=== PATIENT | female | born 1975 ===

== ENCOUNTER → 2016-10-13 | Outpatient (CLI) | payer BC ==
[2016-10-13 13:20] VITALS: BMI 40.1
== END | disposition home or self-care (01) ==
LOC: BARWHC3 08:46
PROVIDERS: ATTEND Surgery
DX: Z71.3 Dietary counseling and surveillance (principal); E66.01 Morbid (severe) obesity due to excess calories; Z68.41 Body mass index [BMI] 40.0-44.9, adult
CPT/HCPCS: 97804

== ENCOUNTER → 2016-11-18 | Outpatient (CLI) | payer BC ==
[2016-11-18 12:48] LABS: Basophils % (A) 0 %; CH 29.8; CHCM 32.7; Eosinophils # (A) 0.3 k/uL (0-0.7); Eosinophils % (A) 3 %; HCT 37.9 % (34.0-46.0); HGB 12.5 gm/dL (11.4-16.0); Luc # (Auto) 0.24; Luc % (Auto) 3; Lymphocytes # (A) 3.1 k/uL (1.0-4.8); Lymphocytes % (A) 38 %; MCH 30.1 pg (25.0-35.0); MCV 91.3 fL (80.0-100.0); Mean Platelet Volume 10.1; Monocytes # (A) 0.4 k/uL (0-1.0); Monocytes % (A) 5 %; Neutrophils # (A) 4.1 k/uL (1.3-7.7); Neutrophils % (A) 51 %; RBC 4.15 m/uL (3.80-5.40); RDW 13.2 % (11.5-15.5); WBC 8.2 k/uL (3.8-10.6); WBC (Perox) 8.13
[2016-11-18 13:03] LABS: Anion Gap 9 mmol/L; Blood Urea Nitrogen 13 mg/dL (7-17); Carbon Dioxide 27 mmol/L (22-30); Chloride 104 mmol/L (98-107); Glucose 83 mg/dL (74-99); Non-African American GFR(MDRD) >60 (>60 ml/min/1.73 sqM); Potassium 4.2 mmol/L (3.5-5.1); Sodium 140 mmol/L (137-145)
== END | disposition home or self-care (01) ==
LOC: LABPAT 12:20
PROVIDERS: ATTEND Obstetrics & Gynecology
DX: Z01.812 Encounter for preprocedural laboratory examination (principal)
CPT/HCPCS: 36415; 80051; 82565; 82947; 84520; 85025; 87086

== ENCOUNTER 2016-11-25 08:37 | Inpatient (IN) | payer BC ==
[2016-11-17 11:09] VITALS: BMI 39.9
--- NOTE | 2016-11-20 13:06 | HP ---
DATE OF ADMISSION: 11/25/2016 This is a 40-year-old black female [address] Guido's care with a history of prolonged 10-day menses and golf ball size clots. Evaluation was performed and this was consistent with an enlarged fibroid uterus. In fact, sonogram 10/21/2016 reveals at least 7 fibroids, largest measuring 14.9 cm. All options have been reviewed in detail. Patient strongly prefers total abdominal hysterectomy, her has had vasectomy, and she desires no childbearing. In addition, she does not want to proceed with Depo-Lupron injections, or anything that may result in the fibroids growing back. She understands the risks of surgery, especially with the uterus of this size, to include, but not be exclusive of perforation or damage to the bowel or bladder to blood vessels, hemorrhage, possible need for blood transfusion, and issues with anesthesia to include aspiration, nerve damage or even . She understands the potential of damage to the ureters as well. The ACOG pamphlet on hysterectomy has been given to the patient, and she has reviewed this. Endometrial biopsy has been performed in the office and this is consistent with benign secretory endometrium. Review of systems is otherwise negative. PAST SURGICAL HISTORY: Knee surgery of the left knee 2010, right shoulder and left shoulder reconstruction in the . CURRENT MEDICATIONS: Citalopram 20 mg orally once daily. ALLERGIES: None known. Past medical history is significant for anemia, cardiomyopathy, heart murmur, as well as benign pituitary tumor. Dr. Guido is her primary care physician following. Family history is significant for breast cancer, hypertension, lung cancer and obesity. REPRODUCTIVE HISTORY: Menarche began at the age of 11, interval with monthly but duration is a full 10 days of very heavy flow. Recent FSH level is 2.2, thyroid function studies within normal limits. 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 She denies alcohol or drug use. She does drink caffeine daily. On examination, this is a pleasant black female, she is 242 pounds, 5 feet 5.25 inches, BMI 39. The general physical exam reveals no skin lesions or rashes, no thyromegaly, good dentition, no cervical lymphadenopathy. The chest is clear to auscultation in all sanchez anteriorly and posteriorly. The breast exam reveals symmetric breasts, no skin dimpling, nipple discharge, axillary adenopathy or discernible lesions or masses. Gastrointestinal exam reveals no CVA tenderness, the uterus is palpated through the abdominal wall almost to the umbilicus. The extremities reveal good range of motion, good peripheral pulses, no peripheral edema. The chest is clear to auscultation in all sanchez. The cardiac exam reveals regular rate and rhythm with no murmur, click or rub. On pelvic exam, the uterus is enlarged, approximately 16 to 18 weeks' size, irregular and mobile. Adnexa are difficult to palpate; however, sonographic evaluation suggests that they are within normal limits. Rectal exam reveals good sphincter tone, FIT negative stool, no lesions or masses. No inguinal lymphadenopathy is noted. Neurologic exam is completely intact. Patient is alert and oriented x3 with intact insight and judgment, normal mood and appropriate affect. IMPRESSION: Enlarged fibroid uterus, with a history of menometrorrhagia. Patient choosing abdominal hysterectomy at this time. PLAN: We will proceed with total abdominal hysterectomy. Ovaries will be inspected and left in situ if they are within normal limits to inspection. patient does consent to having the ovaries removed if they are not normal to inspection. She understands the risks and benefits of surgery as we have discussed in detail, please see above. All questions answered. Will proceed with total abdominal hysterectomy at [facility] on 11/25/2016.
[~2016-11-25 08:37] MED LIST: DEXAMETHASONE SOD PHOSPHATE 10 MG/ML 1 ML VIAL IV ONE; HYDROmorphone 1 MG/ML 1 ML SYRINGE IVP PRN; MIDAZOLAM 2 MG/2 ML VIAL IV PRN; ONDANSETRON 4 MG/2 ML VIAL IVP ONE; SCOPOLAMINE 1.5MG/72HR PATCH TRANSDERM ONE; ceFAZolin 2 GM in SODIUM CHLORIDE 0.9% 100 ML IVPB ONE
[2016-11-25] MEDS ORDERED: LIDOCAINE 1% 20 ML VIAL (10MG/ML) FOR IV START INTRADERMA ONE (09:40)
[2016-11-25 09:41] LABS: Glucose,Whole Blood 81 mg/dL (75-99)
[2016-11-25] MEDS: LACTATED RINGERS 1,000 ML IV SCH ×2 (09:42→22:46)
[2016-11-25] MEDS ORDERED: MIDAZOLAM 2 MG/2 ML VIAL IV ONE (10:00)
[2016-11-25] MEDS ORDERED: fentaNYL (PF) 50 MCG/ML 2 ML AMP IV ONE (10:00)
[2016-11-25] MEDS ORDERED: ePHEDrine 50 MG/ML 1 ML AMP ONE (10:34)
[2016-11-25] MEDS ORDERED: ROCURONIUM BROMIDE 10 MG/ML 10 ML VIAL IV ONE (10:34)
[2016-11-25] MEDS ORDERED: GLYCOPYRROLATE 0.2 MG/ML 2 ML VIAL ONE (10:34)
[2016-11-25] MEDS ORDERED: MORPHINE SULFATE (PF) 0.3 MG/0.3 ML SYR ONE (10:34)
[2016-11-25] MEDS ORDERED: fentaNYL (PF) 50 MCG/ML 2 ML AMP ONE (10:34)
[2016-11-25] MEDS ORDERED: NEOSTIGMINE 1 MG/ML 10 ML VIAL ONE (10:34)
[2016-11-25] MEDS ORDERED: SUCCINYLCHOLINE CHLORIDE 100 MG/5 ML SYR IV ONE (10:34)
[2016-11-25] MEDS ORDERED: PROPOFOL 10 MG/ML 20 ML VIAL IV ONE (10:34)
[2016-11-25] MEDS ORDERED: LIDOCAINE 1% INJ 10MG/ML (20 ML MDV) ONE (10:34)
[2016-11-25] MEDS ORDERED: LACTATED RINGERS 1,000 ML IV ONE ×2 (11:36)
[2016-11-25] MEDS ORDERED: SIMETHICONE 80 MG CHEWABLE PO PRN (12:05)
[2016-11-25] MEDS ORDERED: ZOLPIDEM 5 MG TAB PO PRN (12:05)
[2016-11-25] MEDS ORDERED: METOCLOPRAMIDE 5 MG/ML 2 ML VIAL IVP PRN (12:05)
[2016-11-25] MEDS ORDERED: IBUPROFEN 600 MG TAB PO PRN (12:05)
[2016-11-25] MEDS ORDERED: ONDANSETRON 4 MG/2 ML VIAL IVP PRN ×2 (12:05→13:52)
[2016-11-25] MEDS ORDERED: Acetaminophen-Codeine 300-30mg TAB PO PRN (12:05)
--- NOTE | 2016-11-25 12:05 | P.OP ---
Date of Procedure: 11/25/16 Preoperative Diagnosis: Symptomatic 16-18 week size fibroid uterus Postoperative Diagnosis: Same, normal-appearing ovaries bilaterally Procedure(s) Performed: Total abdominal hysterectomy Anesthesia: GUANACO Surgeon: Lisa Tomlinson Cattle Rancher #1: Cipriano Pan Estimated Blood Loss (ml): 200 IV fluids (ml): 1,200 Urine output (ml): 55 Pathology: other (Cervix and uterus) Condition: stable Disposition: PACU Description of Procedure: Patient is brought to Bring suite where a general anesthetic is administered after the placement of a Duramorph with spinal. The cervix vagina perineum and abdomen are all prepped and draped in usual sterile fashion. Antibiotics are given. The appropriate timeout is performed to assure proper patient and procedural identification. Manuel catheter is placed. A low transverse skin incision is made in this is carried down to the subcutaneous tissue that is approximately 6-8 cm deep. Fascia is isolated, scored and extended bilaterally with curved Alejandre scissors. Peritoneum is next identified and incised, there is no bowel or bladder involvement. Gentle examination under anesthesia reveals a negative upper abdomen. The O'Dez-O' Conner retractors placed and the bowel was gently packed with sterile sponges and the bladder blade is placed as well. Mckenna clamps are placed across the pedicles. The uterus is elevated. Round ligaments are approached, clamped cut and suture ligated. Skeletonization is then performed to keep the bladder off the anterior uterine segment. Windows are created and the utero-ovarian ligaments are identified, clamped cut and suture ligated. Bilateral ovaries are within normal limits and therefore left in situ per the patient's wishes. Skeletonization is then performed with Metzenbaum scissors on the uterine vasculature. The vessels are clamped cut and suture ligated. 2 additional pedicles are taken through the uterosacral cardinal ligament complex cc, these are skeletonized, clamped cut and suture ligated. At all times the bladder swept well from the operative field to avoid bladder and/or ureteral injury. Curved Davion clamps are used across the vaginal cervical junction and the cervix and uterus are removed and sent to pathology for evaluation. 0 Vicryl sutures are used across the final pedicles. The abdomen is then irrigated, all pedicles are reinspected and noted to be clean and dry. Manuel catheter is noted to be draining clear urine. The peritoneum is allowed to close by secondary intention. The fascia is closed in a running stitch of 0 Vicryl suture with over ligation in the midline. Subcutaneous tissue is irrigated, clean and dry. It is reapproximated with 3-0 Vicryl in a running stitch. 4-0 undyed Vicryl issues for final skin closure. Steri-Strips and Mastisol are applied to the wound. Total estimated blood loss 200 mL, urine output 55 mL, fluid replacement 1200 mL 's. Patient is brought back to the recovery room in stable condition with a blood pressure of 107/58, pulse 62. All sponge needle and enhancement counts are correct.
[2016-11-25] MEDS ORDERED: MORPHINE SULFATE 4 MG/ML SYRINGE IVP PRN ×2 (13:52→14:42)
[2016-11-25] MEDS ORDERED: NALOXONE 0.4 MG/ML 1 ML VIAL IV PRN (13:52)
[2016-11-25] MEDS ORDERED: NALBUPHINE 10 MG/ML AMPUL IV PRN (13:52)
[2016-11-25] MEDS: diphenhydrAMINE 50 MG/ML 1 ML VIAL IVP PRN (22:37)
[2016-11-25] MEDS: KETOROLAC 30 MG/ML 1 ML VIAL IVP PRN (22:37)
[2016-11-25] MEDS: SENNOSIDES-DOCUSATE SODIUM 1 EACH TAB PO SCH (22:46)
[2016-11-26] MEDS: diphenhydrAMINE 50 MG/ML 1 ML VIAL IVP PRN (05:16)
[2016-11-26] MEDS: KETOROLAC 30 MG/ML 1 ML VIAL IVP PRN (05:17)
--- NOTE | 2016-11-26 07:11 | P.PN ---
Subjective Principal diagnosis: Postoperative day #1 Objective - Vital Signs Vital signs: Vital Signs Temp 98.9 F 11/26/16 04:00 Pulse 58 L 11/26/16 04:00 Resp 16 11/26/16 04:00 BP 113/59 11/26/16 04:00 Pulse Ox 99 11/26/16 04:00 Intake & Output 11/25/16 11/26/16 11/26/16 18:59 06:59 18:59 Intake Total 2100 Output Total 655 950 Balance 1445 -950 Intake: IV 2100 Output: Urine 455 950 Uretheral (Manuel) 200 Estimated Blood Loss 200 Other: Voiding Method Indwelling Catheter # Voids 1 - Constitutional General appearance: Present: average body habitus, cooperative - EENT Eyes: Present: PERRLA ENT: Present: hearing grossly normal - Neck Neck: Present: normal ROM Thyroid: bilateral: normal size - Respiratory Respiratory: bilateral: CTA - Cardiovascular Rhythm: regular Heart sounds: normal: S1, S2 - Gastrointestinal General gastrointestinal: Present: normal bowel sounds - Genitourinary Genitourinary Comment(s): Skin vaginal drainage. No CVA tenderness. - Integumentary Integumentary: Present: normal - Neurologic Neurologic: Present: CNII-XII intact, focal deficits - Musculoskeletal Musculoskeletal: Present: gait normal, strength equal bilaterally - Psychiatric Psychiatric: Present: A&O x's 3, appropriate affect, intact judgment & insight Assessment and Plan Plan: Continue postoperative care. Patient may shower. Discontinue IV. Advanced diet. Possible discharge home later today versus discharge home tomorrow morning pending patient's clinical progress. Time with Patient: Less than 30
[2016-11-26 10:25] LABS: Basophils # (A) 0.2 k/uL (0-0.2); Basophils % (A) 2 %; CH 30.1; CHCM 32.1; Eosinophils % (A) 0 %; HCT 31.1 % (34.0-46.0); HDW 2.46; Luc # (Auto) 0.26; Luc % (Auto) 2; Lymphocytes # (A) 1.6 k/uL (1.0-4.8); Lymphocytes % (A) 13 %; MCH 30.4 pg (25.0-35.0); MCHC 32.3 g/dL (31.0-37.0); MCV 94.3 fL (80.0-100.0); Monocytes # (A) 0.5 k/uL (0-1.0); Monocytes % (A) 4 %; Neutrophils # (A) 9.5 k/uL (1.3-7.7); Neutrophils % (A) 78 %; RDW 13.6 % (11.5-15.5); WBC 12.2 k/uL (3.8-10.6); WBC (Perox) 12.98
--- NOTE | 2016-11-26 10:41 | P.PN ---
Progress Note - Text Postoperative day 1 status post total abdominal hysterectomy under general endotracheal anesthesia, and intrathecal morphine given for postoperative analgesia, patient doing well, there is no anesthesia related complications, further management as per her primary team
[2016-11-26] MEDS: SENNOSIDES-DOCUSATE SODIUM 1 EACH TAB PO SCH (17:21)
[2016-11-26 17:25] VITALS: BP 103/68; PULSE 72; RESP 16; TEMP 97.8
[2016-11-26] MEDS ORDERED: ALBUTEROL NEBULIZED 2.5 MG/3 ML INHALATION PRN (17:29)
[2016-11-26] MEDS ORDERED: ALPRAZolam 0.25 MG TAB PO PRN (17:29)
[2016-11-26] MEDS ORDERED: ERGOCALCIFEROL 50,000 UNIT CAP PO SCH (17:30)
--- NOTE | 2016-11-26 19:38 | DS ---
DATE OF ADMISSION: 11/25/2016 DATE OF DISCHARGE: 11/26/2016 ADMITTING DIAGNOSIS: Increasingly symptomatic [id number] fibroid uterus. DISCHARGE DIAGNOSIS: Status post total abdominal hysterectomy. This is a 41-year-old black female who presented with a long-standing history of fibroid uterus. The patient over time was noted to have an increasingly symptomatic fibroid uterus, approximately 16- to 18-week size on clinical examination. Sonographic evaluation revealed multiple uterine fibroids, and after consultation patient elected to proceed with total abdominal hysterectomy. She declined the option of Lupron therapy. She declined the option of uterine artery embolization. Preoperative clearance was given per her primary care physician, Dr. Guido. Please see my dictated history and physical for details. Patient was admitted, and with a low transverse incision underwent a total abdominal hysterectomy. Ovaries appeared normal to inspection and were left in situ. Patient did well intraoperatively with an estimated blood loss of 200 mL. Please see my dictated operative note for details. Patient was given spinal with Duramorph to aid in postoperative analgesia. Today the patient is doing very well. Manuel catheter has been removed. She is voiding, ambulating, passing flatus, tolerating regular diet. She has showered. She denies lightheadedness or dizziness. Vital signs are stable and she has remained afebrile. Morning hemoglobin was 10.0. She has only scant vaginal drainage. The abdominal incision is clean and dry, well approximated, Steri-Strips applied. Chest is clear in all sanchez. Extremities are negative. She has active bowel sounds. No CVA tenderness. Patient is being discharged home per her request. She is in very good condition for discharge home. She is reminded to follow up with me in the office in 2 weeks, and to call for that appointment. She will use yicb-van-jjspoth Advil products, 2 pills every 8 hours, or Aleve, 2 pills every 12 hours, or ibuprofen products, 200 mg pills, 3 every 6 hours as needed for pain. I have asked her to call me with any fever, shakes or chills, foul-smelling or copious vaginal drainage, with any pain not alleviated by [id number]-nix-mnbyxde products, with any lightheadedness or dizziness or any other symptomatology. She will resume her preoperative medications as prescribed per Dr. Guido. No driving for 2 weeks. No heavy lifting greater than a gallon of milk. Limited stair climbing.
[2016-11-27] MEDS ORDERED: MULTIVITAMINS, THERA 1 EACH TAB PO SCH (12:00)
== END 2016-11-26 18:32 | disposition home or self-care (01) | DRG 743 ==
LOC: 2ORWHC 08:37 → 4FBP 12:40
PROVIDERS: ADMIT Obstetrics & Gynecology; ATTEND Obstetrics & Gynecology
PROC: 0UTC0ZZ Resection of Cervix, Open Approach (ICD-10-PCS; principal; 2016-11-25 10:25)
PROC: 0UT90ZZ Resection of Uterus, Open Approach (ICD-10-PCS; principal; 2016-11-25 10:25)
DX: D25.9 Leiomyoma of uterus, unspecified (principal); G47.33 Obstructive sleep apnea (adult) (pediatric); Z79.899 Other long term (current) drug therapy
CPT/HCPCS: 36415; 80051; 81025; 82565; 82947; 84520; 85025; 86850; 86900; 86901; 87086; 88307

== ENCOUNTER → 2017-11-13 | Outpatient (CLI) | payer BC ==
--- NOTE | 2017-11-13 17:57 | US ---
EXAMINATION TYPE: US transvaginal DATE OF EXAM: 11/13/2017 COMPARISON: NONE CLINICAL HISTORY: N94.10 dyspareunia. Partial hysterectomy 01/28. Dyspareunia TECHNIQUE: Transvaginal (TV). Date of LMP: unknown EXAM MEASUREMENTS: Uterus: Surgically absent Endometrial Stripe: Surgically absent Right Ovary: 3.5 x 1.8 x 1.9 cm Left Ovary: 2.8 x 2.1 x 2.3 cm 1. Uterus: Surgically absent 2. Endometrium: Surgically absent 3. Right Ovary: follicle noted 4. Left Ovary: cystic area = 1.5 x 1.7 x 1.8cm 5. Bilateral Adnexa: wnl IMPRESSION: Simple 1.7 cm left ovarian cyst. No solid pelvic mass. No free fluid.
== END | disposition home or self-care (01) ==
LOC: RADUSWWP 16:15
PROVIDERS: ATTEND Internal Medicine Geriatric Medicine
DX: N83.292 Other ovarian cyst, left side (principal)
CPT/HCPCS: 76830

== ENCOUNTER → 2017-12-28 | Outpatient (CLI) | payer BC ==
--- NOTE | 2017-12-28 11:21 | MM ---
Reason for exam: clinical finding. Last mammogram was performed 1 year and 5 months ago. History: Patient is nulliparous. Family history of breast cancer in sister at age 39. Benign excisional biopsy of the left breast, 2008. Took hormonal contraceptives for 7 years beginning at age 17. Physical Findings: Nurse Summary: 0.5cm nodule in the left breast at 10-11 o'clock (nurse kp). MG Diagnostic Mammo w CAD CAIO Bilateral CC and MLO view(s) were taken. Spot compression CC view(s) were taken of the left breast. Prior study comparison: July 18, 2016, bilateral MG diagnostic mammo w CAD CAIO. The breast tissue is heterogeneously dense. This may lower the sensitivity of mammography. Palpable marker left 11 o'clock. Small asymmetric density medial and posterior does not persist on spot view. Stable upper outer quadrant lymph node. These results were verbally communicated with the patient and result sheet given to the patient on 12/28/17. ASSESSMENT: Incomplete: need additional imaging evaluation, BI-RAD 0 RECOMMENDATION: Ultrasound of the left breast. [facility] will attempt to contact patient to return for ultrasound.
--- NOTE | 2017-12-28 11:24 | USB ---
Reason for exam: additional evaluation requested from abnormal screening. History: Patient is nulliparous. Family history of breast cancer in sister at age 39. Benign excisional biopsy of the left breast, 2008. Took hormonal contraceptives for 7 years beginning at age 17. US Breast LT Left breast ultrasound includes all four quadrants, the retroareolar region and axilla. Finding demonstrates a 10 x 7 x 9mm oval, probable lymph node at 1 o'clock seen on previous. Duct ectasia corresponding to the mammographic finding. Palpable marker at 11 o'clock. No sonographic abnormality in this area. These results were verbally communicated with the patient and result sheet given to the patient on 12/28/17. ASSESSMENT: Benign, BI-RAD 2 RECOMMENDATION: Routine screening mammogram of both breasts in 1 year. Manage on a clinical basis with regard to any suspicious palpable abnormality.
== END | disposition home or self-care (01) ==
LOC: RADMAMWWP 08:10
PROVIDERS: ATTEND Obstetrics & Gynecology
DX: R92.8 Other abnormal and inconclusive findings on diagnostic imaging of breast (principal); N63.20 Unspecified lump in the left breast, unspecified quadrant
CPT/HCPCS: 77066

== ENCOUNTER 2019-05-04 10:00 | Observation (INO) | payer BC ==
[2019-05-04] MEDS ORDERED: SODIUM CHLORIDE 0.9% 500 ML 500 ML IV STA (10:18)
--- NOTE | 2019-05-04 10:31 | ED ---
General Adult HPI - General Source: patient, RN notes reviewed, old records reviewed Mode of arrival: wheelchair Limitations: physical limitation <Arturo Rodriguez - Last Filed: 05/04/19 12:08> <Angus Fernando - Last Filed: 05/04/19 12:44> - General Chief complaint: Chest Pain Stated complaint: chest pain, has heart Hx Time Seen by Provider: 05/04/19 10:11 - History of Present Illness Initial comments: 43-year-old female patient with past history of hypertrophic effective cardiomyopathy presents to ED with acute 3 days of chest pain, pleuritic chest pain. Patient reports pain is located in her left breast, substernally. Patient reports pain comes and goes, describes as a dull, squeezing pain. Patient ports that she experiencing this pain at rest as well as with exertion. She recently had a echocardiogram, does not yet know the results. Patient had a cardiac catheterization in [address] Sanders. Patient states that she contacted [facility] today and they recommended present to ER. Systemic: Pt denies fatigue, fever/chills, rash. Pt denies weakness, night sweats, weight loss. Neuro: Pt denies headache, visual disturbances, syncope or pre-syncope. HEENT: Pt denies ocular discharge or irritation, otalgia, rhinorrhea, pharyngitis or notable lymphadenopathy. Cardiopulmonary: Pt denies SOB, heart palpitations, dyspnea on exertion. Abdominal/GI: Pt denies abdominal pain, n/v/d. : Pt denies dysuria, burning w/ urination, frequency/urgency. Denies new onset urinary or bowel incontinence. MSK: Pt denies myalgia, loss of strength or function in extremities. Neuro: Pt denies new onset weakness, paresthesias. (Arturo Rodriguez) - Related Data Home Medications Medication Instructions Recorded Confirmed ALPRAZolam [Xanax] 0.25 tab PO DAILY PRN 04/28/16 05/04/19 Citalopram Hydrobromide [CeleXA] 20 mg PO DAILY 04/28/16 05/04/19 Ergocalciferol [Vitamin D2 50,000 units PO Q14D 04/28/16 05/04/19 (DRISDOL)] Albuterol Inhaler [Ventolin Hfa 2 puff INHALATION RT-Q6H PRN 11/17/16 05/04/19 Inhaler] Metoprolol Succinate (ER) [Toprol 25 mg PO DAILY 05/04/19 05/04/19 Xl] Montelukast [Singulair] 10 mg PO DAILY PRN 05/04/19 05/04/19 Allergies Allergy/AdvReac Type Severity Reaction Status Date / Time No Known Allergies Allergy Verified 05/04/19 10:56 Review of Systems ROS Other: All systems not noted in ROS Statement are negative. <Arturo Rodriguez - Last Filed: 05/04/19 12:08> ROS Other: All systems not noted in ROS Statement are negative. <Angus Fernando - Last Filed: 05/04/19 12:44> ROS Statement: Those systems with pertinent positive or pertinent negative responses have been documented in the HPI. 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 "heat stroke few years ago", no cpap, hx anemia, current pneumonia- on rx, lazy left eye History of Any Multi-Drug Resistant Organisms: None Reported Past Surgical History: Adenoidectomy, Breast Surgery, Heart Catheterization, Orthopedic Surgery, Tonsillectomy Additional Past Surgical History / Comment(s): SANCHEZ, bl shoulder reconstructions, left knee arthroscopy, cyst removed from left breast, Past Anesthesia/Blood Transfusion Reactions: Postoperative Nausea & Vomiting (PONV) Past Psychological History: No Psychological Hx Reported Smoking Status: Never smoker Past Alcohol Use History: None Reported Past Drug Use History: None Reported - Past Family History Father Family Medical History: Cancer <Arturo Rodriguez - Last Filed: 05/04/19 12:08> General Exam Limitations: physical limitation <Arturo Rodriguez - Last Filed: 05/04/19 12:08> - General Exam Comments Initial Comments: Constitutional: NAD, AOX3, Pt has pleasant affect. HEENT: NC/AT, trachea midline, neck supple, no lymphadenopathy. Posterior pharynx non erythematous, without exudates. External ears appear normal, without discharge. Mucous membranes moist. Eyes PERRLA, EOM intact. There is no scleral icterus. No pallor noted. Cardiopulmonary: RRR, no murmurs, rubs or gallops, no JVD noted. Lungs CTAB in anterior and posterior sanchez. No peripheral edema. Abdominal exam: Abdomen soft and non-distended. Abdomen non-tender to palpation in all 4 quadrants. Bowel sounds active in LLQ. No hepatosplenomegaly. No ecchymosis Neuro: CN II-XII grossly intact. No nuchal rigidity. No raccon eyes, no paniagua sign, no hemotympanum. No cervical spinal tenderness. MSK: No posterior calf tenderness bilaterally, homans sign negative bilaterally. Posterior tibialis and radial pulse +2 bilaterally. Sensation intact in upper and lower extremities. Full active ROM in upper and lower extremities, 5/5 stregnth. (Arturo Rodriguez) Course <Angus Fernando - Last Filed: 05/04/19 12:44> Vital Signs 05/04/19 05/04/19 05/04/19 10:04 10:29 10:49 Temperature 99 F Pulse Rate 54 L 51 L 56 L Pulse Rate [ Contract Assistant ] Respiratory 18 15 16 Rate Blood Pressure 115/76 127/79 O2 Sat by Pulse 99 99 98 Oximetry 05/04/19 05/04/19 05/04/19 10:50 11:00 11:07 Temperature Pulse Rate 88 Pulse Rate [ 56 L Contract Assistant ] Respiratory 16 Rate Blood Pressure 134/81 131/84 O2 Sat by Pulse 98 Oximetry 05/04/19 12:00 Temperature Pulse Rate 55 L Pulse Rate [ Contract Assistant ] Respiratory 16 Rate Blood Pressure 110/57 O2 Sat by Pulse 99 Oximetry - Reevaluation(s) Reevaluation #1: 05/04/19 12:42 Patient reevaluated and reexamined by myself, Dr. Fernando. Patient resting comfortably in bed following nitroglycerin. Patient updated on results and plan. I do agree with the findings. This includes diagnostic interpretation and treatment plan. Case was also discussed with Dr. Luther, who will admit covered for Dr. Guido. (Angus Fernando) Medical Decision Making - Lab Data Result diagrams: 05/04/19 10:25 05/04/19 10:25 - EKG Data -: EKG Interpreted by Me (and Dr. Fernando ) <Arturo Rodriguez - Last Filed: 05/04/19 12:08> - Lab Data Result diagrams: 05/04/19 10:25 05/04/19 10:25 <Angus Fernando - Last Filed: 05/04/19 12:44> - Medical Decision Making 43-year-old female patient with past medical history of hypertrophic obstructive cardiomyopathy presents ED chief complaint of chest pain for last 3 days. Patient reports that is under her left breast, mildly pleuritic in nature. Patient has any shortness of breath. Patient reports that she expressed the pain with exertion as well as with rest. Patient vital signs stable, afebrile. Physical exam did not display acute pathology. Laboratory investigations noncompressive. CBC CMP were not impressive. D-dimer negative, coagulation studies within normal limits. Troponin negative. BNP 157. EKG nonischemic. Chest x-ray did not display acute process. One sublingual nitro reduced pain from a 7 to a 0. Patient will be initiated on low intensity heparin. He'll be admitted for cardiac evaluation, serial troponins. Case discussed with Dr. Fernando. (Arturo Rodriguez) - Lab Data Lab Results 05/04/19 05/04/19 05/04/19 Range/Units 10:25 10:25 10:25 WBC 7.1 (3.8-10.6) k/uL RBC 4.38 (3.80-5.40) m/uL Hgb 13.5 (11.4-16.0) gm/dL Hct 40.7 (34.0-46.0) % MCV 92.9 (80.0-100.0) fL MCH 30.8 (25.0-35.0) pg MCHC 33.2 (31.0-37.0) g/dL RDW 14.3 (11.5-15.5) % Plt Count 212 (150-450) k/uL Neutrophils % 59 % Lymphocytes % 30 % Monocytes % 6 % Eosinophils % 3 % Basophils % 1 % Neutrophils # 4.1 (1.3-7.7) k/uL Lymphocytes # 2.1 (1.0-4.8) k/uL Monocytes # 0.4 (0-1.0) k/uL Eosinophils # 0.2 (0-0.7) k/uL Basophils # 0.0 (0-0.2) k/uL Manual Slide Review Performed Large Platelets Present RBC Morphology Normal PT 10.5 (9.0-12.0) sec INR 1.0 (<1.2) APTT 24.9 (22.0-30.0) sec D-Dimer 0.33 (<0.60) mg/L FEU Sodium 139 (137-145) mmol/L Potassium 4.5 (3.5-5.1) mmol/L Chloride 105 (98-107) mmol/L Carbon Dioxide 23 (22-30) mmol/L Anion Gap 11 mmol/L BUN 12 (7-17) mg/dL Creatinine 0.84 (0.52-1.04) mg/dL Est GFR (CKD-EPI)AfAm >90 (>60 ml/min/1.73 sqM) Est GFR (CKD-EPI)NonAf 85 (>60 ml/min/1.73 sqM) Glucose 82 (74-99) mg/dL Calcium 9.6 (8.4-10.2) mg/dL Magnesium 1.9 (1.6-2.3) mg/dL Total Bilirubin 0.5 (0.2-1.3) mg/dL AST 30 (14-36) U/L ALT 33 (9-52) U/L Alkaline Phosphatase 46 (38-126) U/L Troponin I (0.000-0.034) ng/mL NT-Pro-B Natriuret Pep pg/mL Total Protein 7.5 (6.3-8.2) g/dL Albumin 4.2 (3.5-5.0) g/dL 05/04/19 05/04/19 Range/Units 10:25 10:25 WBC (3.8-10.6) k/uL RBC (3.80-5.40) m/uL Hgb (11.4-16.0) gm/dL Hct (34.0-46.0) % MCV (80.0-100.0) fL MCH (25.0-35.0) pg MCHC (31.0-37.0) g/dL RDW (11.5-15.5) % Plt Count (150-450) k/uL Neutrophils % % Lymphocytes % % Monocytes % % Eosinophils % % Basophils % % Neutrophils # (1.3-7.7) k/uL Lymphocytes # (1.0-4.8) k/uL Monocytes # (0-1.0) k/uL Eosinophils # (0-0.7) k/uL Basophils # (0-0.2) k/uL Manual Slide Review Large Platelets RBC Morphology PT (9.0-12.0) sec INR (<1.2) APTT (22.0-30.0) sec D-Dimer (<0.60) mg/L FEU Sodium (137-145) mmol/L Potassium (3.5-5.1) mmol/L Chloride (98-107) mmol/L Carbon Dioxide (22-30) mmol/L Anion Gap mmol/L BUN (7-17) mg/dL Creatinine (0.52-1.04) mg/dL Est GFR (CKD-EPI)AfAm (>60 ml/min/1.73 sqM) Est GFR (CKD-EPI)NonAf (>60 ml/min/1.73 sqM) Glucose (74-99) mg/dL Calcium (8.4-10.2) mg/dL Magnesium (1.6-2.3) mg/dL Total Bilirubin (0.2-1.3) mg/dL AST (14-36) U/L ALT (9-52) U/L Alkaline Phosphatase (38-126) U/L Troponin I <0.012 (0.000-0.034) ng/mL NT-Pro-B Natriuret Pep 157 pg/mL Total Protein (6.3-8.2) g/dL Albumin (3.5-5.0) g/dL - EKG Data EKG Comments: Ventricular rate 52, WA interval 160, QRS 76, QT/QTC 42 cm for 48. Sinus bradycardia, possible left atrial enlargement, septal infarct, age indeterminate, repolarization changes from prior. Repolarization changes from prior. (Arturo Rodriguez) Disposition Is patient prescribed a controlled substance at d/c from ED?: No <Arturo Rodriguez - Last Filed: 05/04/19 12:08> <Angus Fernando - Last Filed: 05/04/19 12:44> Clinical Impression: Chest pain Disposition: ADMITTED IP TO THIS HOSP Condition: Serious Referrals: Neo Guido MD [Primary Care Provider] - 1-2 days
[2019-05-04] MEDS ORDERED: NITROGLYCERIN SL TABS 0.4 MG TAB SUBLINGUAL STA (10:42)
[2019-05-04 11:02] LABS: Basophils % (A) 1 %; Eosinophils # (A) 0.2 k/uL (0-0.7); Eosinophils % (A) 3 %; HCT 40.7 % (34.0-46.0); HGB 13.5 gm/dL (11.4-16.0); Lymphocytes # (A) 2.1 k/uL (1.0-4.8); Lymphocytes % (A) 30 %; MCH 30.8 pg (25.0-35.0); MCHC 33.2 g/dL (31.0-37.0); MCV 92.9 fL (80.0-100.0); Mean Platelet Volume 10.8; Monocytes # (A) 0.4 k/uL (0-1.0); Monocytes % (A) 6 %; Neutrophils # (A) 4.1 k/uL (1.3-7.7); Neutrophils % (A) 59 %; RBC 4.38 m/uL (3.80-5.40); RDW 14.3 % (11.5-15.5); WBC 7.1 k/uL (3.8-10.6)
[2019-05-04 11:13] LABS: ALT 33 U/L (9-52); AST 30 U/L (14-36); African American GFR (CKD) >90 (>60 ml/min/1.73 sqM); Albumin 4.2 g/dL (3.5-5.0); Alkaline Phosphatase 46 U/L (38-126); Anion Gap 11 mmol/L; Blood Urea Nitrogen 12 mg/dL (7-17); Calcium 9.6 mg/dL (8.4-10.2); Carbon Dioxide 23 mmol/L (22-30); Chloride 105 mmol/L (98-107); Glucose 82 mg/dL (74-99); Magnesium 1.9 mg/dL (1.6-2.3); Potassium 4.5 mmol/L (3.5-5.1); Sodium 139 mmol/L (137-145); Total Bilirubin 0.5 mg/dL (0.2-1.3); Total Protein 7.5 g/dL (6.3-8.2)
[2019-05-04 11:16] LABS: D-Dimer 0.33 mg/L FEU (<0.60); Partial Thromboplastin Time 24.9 sec (22.0-30.0); Prothrombin Time 10.5 sec (9.0-12.0)
--- NOTE | 2019-05-04 11:25 | XR ---
EXAMINATION TYPE: XR chest 2V DATE OF EXAM: 05/04/2019 COMPARISON: Prior chest dated 04/29/2016 HISTORY: Chest pain TECHNIQUE: Frontal and lateral views of the chest are obtained. FINDINGS: There is no focal air space opacity, pleural effusion, or pneumothorax seen. The cardiac silhouette size is within normal limits. There are overlying cardiac leads. Patient is rotated. The osseous structures are intact. IMPRESSION: No acute cardiopulmonary process.
[2019-05-04 11:30] LABS: Large Platelets Present; Platelet Count 212 k/uL (150-450)
[2019-05-04] MEDS ORDERED: HEPARIN SODIUM,PORCINE 5,000 UNIT/ML 1 ML VIAL IV ONE (12:06)
[2019-05-04] MEDS ORDERED: HEPARIN SODIUM,PORCINE 5,000 UNIT/ML 1 ML VIAL IV PRN (12:06)
[2019-05-04] MEDS ORDERED: NITROGLYCERIN SL TABS 0.4 MG TAB SUBLINGUAL PRN (12:12)
[2019-05-04] MEDS ORDERED: HEPARIN SOD,PORK IN 0.45% NACL 25,000 UNIT in 0.45% NACL 1 250ML.BAG IV SCH (12:15)
--- NOTE | 2019-05-04 12:28 | ED ---
Medical Decision Making - Lab Data Result diagrams: 05/04/19 10:25 05/04/19 10:25 Lab Results 05/04/19 05/04/19 05/04/19 Range/Units 10:25 10:25 10:25 WBC 7.1 (3.8-10.6) k/uL RBC 4.38 (3.80-5.40) m/uL Hgb 13.5 (11.4-16.0) gm/dL Hct 40.7 (34.0-46.0) % MCV 92.9 (80.0-100.0) fL MCH 30.8 (25.0-35.0) pg MCHC 33.2 (31.0-37.0) g/dL RDW 14.3 (11.5-15.5) % Plt Count 212 (150-450) k/uL Neutrophils % 59 % Lymphocytes % 30 % Monocytes % 6 % Eosinophils % 3 % Basophils % 1 % Neutrophils # 4.1 (1.3-7.7) k/uL Lymphocytes # 2.1 (1.0-4.8) k/uL Monocytes # 0.4 (0-1.0) k/uL Eosinophils # 0.2 (0-0.7) k/uL Basophils # 0.0 (0-0.2) k/uL Manual Slide Review Performed Large Platelets Present RBC Morphology Normal PT 10.5 (9.0-12.0) sec INR 1.0 (<1.2) APTT 24.9 (22.0-30.0) sec D-Dimer 0.33 (<0.60) mg/L FEU Sodium 139 (137-145) mmol/L Potassium 4.5 (3.5-5.1) mmol/L Chloride 105 (98-107) mmol/L Carbon Dioxide 23 (22-30) mmol/L Anion Gap 11 mmol/L BUN 12 (7-17) mg/dL Creatinine 0.84 (0.52-1.04) mg/dL Est GFR (CKD-EPI)AfAm >90 (>60 ml/min/1.73 sqM) Est GFR (CKD-EPI)NonAf 85 (>60 ml/min/1.73 sqM) Glucose 82 (74-99) mg/dL Calcium 9.6 (8.4-10.2) mg/dL Magnesium 1.9 (1.6-2.3) mg/dL Total Bilirubin 0.5 (0.2-1.3) mg/dL AST 30 (14-36) U/L ALT 33 (9-52) U/L Alkaline Phosphatase 46 (38-126) U/L Troponin I (0.000-0.034) ng/mL NT-Pro-B Natriuret Pep pg/mL Total Protein 7.5 (6.3-8.2) g/dL Albumin 4.2 (3.5-5.0) g/dL 05/04/19 05/04/19 Range/Units 10:25 10:25 WBC (3.8-10.6) k/uL RBC (3.80-5.40) m/uL Hgb (11.4-16.0) gm/dL Hct (34.0-46.0) % MCV (80.0-100.0) fL MCH (25.0-35.0) pg MCHC (31.0-37.0) g/dL RDW (11.5-15.5) % Plt Count (150-450) k/uL Neutrophils % % Lymphocytes % % Monocytes % % Eosinophils % % Basophils % % Neutrophils # (1.3-7.7) k/uL Lymphocytes # (1.0-4.8) k/uL Monocytes # (0-1.0) k/uL Eosinophils # (0-0.7) k/uL Basophils # (0-0.2) k/uL Manual Slide Review Large Platelets RBC Morphology PT (9.0-12.0) sec INR (<1.2) APTT (22.0-30.0) sec D-Dimer (<0.60) mg/L FEU Sodium (137-145) mmol/L Potassium (3.5-5.1) mmol/L Chloride (98-107) mmol/L Carbon Dioxide (22-30) mmol/L Anion Gap mmol/L BUN (7-17) mg/dL Creatinine (0.52-1.04) mg/dL Est GFR (CKD-EPI)AfAm (>60 ml/min/1.73 sqM) Est GFR (CKD-EPI)NonAf (>60 ml/min/1.73 sqM) Glucose (74-99) mg/dL Calcium (8.4-10.2) mg/dL Magnesium (1.6-2.3) mg/dL Total Bilirubin (0.2-1.3) mg/dL AST (14-36) U/L ALT (9-52) U/L Alkaline Phosphatase (38-126) U/L Troponin I <0.012 (0.000-0.034) ng/mL NT-Pro-B Natriuret Pep 157 pg/mL Total Protein (6.3-8.2) g/dL Albumin (3.5-5.0) g/dL Critical Care Time Critical Care Time: Yes (31 ) Disposition Clinical Impression: Chest pain Disposition: ADMITTED IP TO THIS [facility] Condition: Serious Is patient prescribed a controlled substance at d/c from ED?: No Referrals: Neo Guido MD [Primary Care Provider] - 1-2 days
[2019-05-04 13:56] VITALS: RESP 18
[2019-05-04] MEDS ORDERED: ALPRAZolam 0.25 MG TAB PO PRN (13:59)
[2019-05-04] MEDS ORDERED: ALBUTEROL NEBULIZED 2.5 MG/3 ML INHALATION PRN (13:59)
[2019-05-04] MEDS ORDERED: MONTELUKAST 10 MG TAB PO PRN (13:59)
--- NOTE | 2019-05-04 13:59 | P.HPIM ---
History of Present Illness H&P Date: 05/04/19 Chief Complaint: Chest pain. This is a 43-year-old -[place] female one of Dr. Guido with a previous medical history significant for obstructive cardiomyopathy patient has been having significant chest pain on and off for the past week associated with increased headache as well as increased nausea with increased shortness of breath this is happening with exertion as well as with rest patient was supposed to follow-up with Dr. Sanders as an outpatient to have an echocardiogram in 05/09/2019, she went to the office to see him today however she was rectal to go to the emergency department at [place] [id number] she did not show any evidence of acute of normalities, troponins were negative however because of the presentation he was recommended for the patient to be admitted and seen in consultation by cardiology she was placed on heparin drip, aspirin, she was given a glycerin which helped her pain quite a bit. Patient was admitted to the hospital for further evaluation. Review of Systems Constitutional: Reports chronic headaches, Denies anorexia, Denies chronic pain, Denies lethargy, Denies malaise, Denies weakness, Denies weight gain, Denies weight loss Eyes: denies blurred vision, denies bulging eye, denies decreased vision Ears: deny: decreased hearing Ears, nose, mouth and throat: Denies dysphagia, Denies neck lump, Denies swelli ng in throat, Denies sore throat Cardiovascular: Reports chest pain, Reports decreased exercise tolerance, Reports shortness of breath, Denies lightheadedness, Denies orthopnea, Denies palpitations, Denies rapid heart beat, Denies syncope Respiratory: Reports sleep apnea, Denies congestion, Denies cough with sputum, Denies home oxygen, Denies snoring, Denies wheezing Gastrointestinal: Denies abdominal pain, Denies bloating, Denies BRBPR, Denies heartburn, Denies melena, Denies nausea, Denies vomiting Genitourinary: Denies dysuria, Denies hematuria Musculoskeletal: Denies myalgias Musculoskeletal: absent: ankle pain, ankle stiffness, ankle swelling, as per HPI, elbow pain, elbow stiffness, elbow swelling, foot pain, foot stiffness, foot swelling, hand pain, hand stiffness, hand swelling, hip pain, hip stiffness, hip swelling, knee pain, knee stiffness, knee swelling, shoulder pain, shoulder stiffness, shoulder swelling, wrist pain, wrist stiffness, wrist swelling Integumentary: Denies pruritus, Denies rash Neurological: Denies numbness, Denies weakness Psychiatric: Denies anxiety, Denies depression Endocrine: Denies fatigue, Denies weight change Past Medical History Past Medical History: Atrial Fibrillation, Hypertension, Pneumonia, Sleep Apnea/CPAP/BIPAP Additional Past Medical History / Comment(s): 2013 fell and had bruised heart and fall caused coronary blockages, hypertrophic cardiomyopathy, congenital heart murmur, moderate mitral regurgitation, heat stroke-no deficits, benign pituitary cyst, hypoglycemia, RAFA without device, past anemia, htn with steroid use, "lazy" L eye. History of Any Multi-Drug Resistant Organisms: None Reported Past Surgical History: Adenoidectomy, Breast Surgery, Heart Catheterization, Orthopedic Surgery, Tonsillectomy Additional Past Surgical History / Comment(s): 2013 cardiac cath and SANCHEZ, L breast benign cystectomy, PARI d/t fibroids, bilateral shoulder reconstruction, L knee arthroscopy. Past Anesthesia/Blood Transfusion Reactions: Postoperative Nausea & Vomiting (PONV) Past Psychological History: Anxiety Smoking Status: Never smoker Past Alcohol Use History: None Reported - Past Family History Father Family Medical History: Cancer Additional Family Medical History / Comment(s): Father is from lung cancer, he was a smoker. Mother Family Medical History: Hypertension (Mother is 60-year-old with history of hypertension.) Brother(s) Family Medical History: No Reported History (Patient has 5 half-brothers.) Sister(s) Family Medical History: No Reported History (Patient has 4 sisters Lyrica problems.) Additional Family Medical History / Comment(s): Patient has no children she has one adopted and 2 stepchildren. Medications and Allergies Home Medications Medication Instructions Recorded Confirmed Type ALPRAZolam [Xanax] 0.25 tab PO DAILY PRN 04/28/16 05/04/19 History Citalopram Hydrobromide [CeleXA] 20 mg PO DAILY 04/28/16 05/04/19 History Ergocalciferol [Vitamin D2 50,000 units PO Q14D 04/28/16 05/04/19 History (DRISDOL)] Albuterol Inhaler [Ventolin Hfa 2 puff INHALATION RT-Q6H PRN 11/17/16 05/04/19 History Inhaler] Metoprolol Succinate (ER) [Toprol 25 mg PO DAILY 05/04/19 05/04/19 History Xl] Montelukast [Singulair] 10 mg PO DAILY PRN 05/04/19 05/04/19 History Allergies Allergy/AdvReac Type Severity Reaction Status Date / Time No Known Allergies Allergy Verified 05/04/19 10:56 Physical Exam Vitals: Vital Signs Temp Pulse Pulse Resp BP Pulse Ox 05/04/19 13:00 97.6 F 52 L 16 112/67 97 05/04/19 12:00 55 L 16 110/57 99 05/04/19 11:07 88 16 131/84 98 05/04/19 11:00 134/81 05/04/19 10:50 56 L 05/04/19 10:49 56 L 16 127/79 98 05/04/19 10:29 51 L 15 99 05/04/19 10:04 99 F 54 L 18 115/76 99 Intake and Output 05/03/19 05/04/19 05/04/19 22:59 06:59 14:59 Other: Weight 117.934 kg - Constitutional General appearance: average body habitus, no acute distress - EENT Eyes: anicteric sclerae, EOMI, PERRLA, no ptosis, no scleral icterus, normal appearance ENT: hearing grossly normal, NA/AT, normal oropharynx, no thrush, no tonsillar exudates, no tonsillar swelling Ears: bilateral: normal - Neck Neck: no lymphadenopathy, normal ROM, no rigidity, no stridor, no thyromegaly Carotids: bilateral: upstroke normal Thyroid: bilateral: normal size - Respiratory Respiratory: bilateral: CTA, negative: dullness, rales, rhonchi, wheezing, prolonged expiration, prolonged inspiration - Cardiovascular Rhythm: regular Heart sounds: normal: S1, S2 Abnormal Heart Sounds: systolic murmur (Systolic ejection murmur 2/6 in the left upper sternal border.) - Gastrointestinal General gastrointestinal: normal bowel sounds, soft, no splenomegaly, no tenderness, no umbilical hernia, no ventral hernia - Integumentary Integumentary: normal, normal turgor - Neurologic Neurologic: CNII-XII intact - Musculoskeletal Musculoskeletal: gait normal, strength equal bilaterally - Psychiatric Psychiatric: A&O x's 3, appropriate affect, intact judgment & insight Results CBC & Chem 7: 05/04/19 10:25 05/04/19 10:25 Thrombosis Risk Factor Assmnt - DVT/VTE Prophylaxis DVT/VTE Prophylaxis: Pharmacologic Prophylaxis ordered - Choose All That Apply Any of the Below Risk Factors Present?: Yes Each Factor Represents 1 point: Age 41-60 years, Obesity (BMI >25) Other Risk Factors: No Other congenital or acquired thrombophilia - If yes, enter type in comment: No Thrombosis Risk Factor Assessment Total Risk Factor Score: 2 Thrombosis Risk Factor Assessment Level: Low Risk Assessment and Plan Assessment: Assessment and plan: 1. Chest pain in patient with history of obstructive cardiomyopathy. Admit patient to hospital heparin drip over the next 24 hours, continue aspirin 81 mg once every day, continue Toprol-XL 25 mg orally once every day, cardiology consultation. 2. Obstructive cardiomyopathy. Has been under the care of cardiology Dr. Sanders. Monitor the patient very closely continue Toprol-XL 25 mg orally once every day. 3. Anxiety. Continue patient on Celexa 20 mg once every day as well as Xanax 0.5 mg daily. 4. Vitamin D deficiency. Continue with vitamin D supplement. 5. Asthma. Continue patient on singular 10 mg at bedtime along with albuterol HFA as needed. 6. Obstructive sleep apnea. Currently not on a CPAP since her AHI is not high. 7. Observation. 8. Full code.
--- NOTE | 2019-05-04 14:36 | P.CRDCN ---
History of Present Illness History of present illness: This is a pleasant 43-year-old female past medical history significant for hypertrophic obstructive cardiomyopathy, asthma, sleep apnea and morbid obesity. She follows in the office with Dr. Sanders. We have been asked to see her in consultation secondary to chest discomfort. She was referred to [facility] last year and diagnosed with hypertrophic obs tructive cardiomyopathy. At that time she underwent a stress echocardiogram revealing an LVOT gradient of 100 mmHg at peak exercise. She is currently maintained on Toprol 25 mg daily. She states since Thursday she has noticed a sharp discomfort in the left precordial region with radiation around to the left posterior scapular region. She also has been coughing, nonproductive cough that she describes as a "deep cough", headache, nausea and vomiting x1 when coughing. She also has been increasingly fatigued with increased nasal drainage. No radiation to the arm, neck or jaw. Denies associated shortness of breath, dizziness, palpitations or diaphoresis. She recently underwent echocardiogram in the office April 08 revealing preserved LV systolic function with ejection fraction 60%, LVOT gradient of 41 mmHg, mild to moderate mitral regurgitation. In 2013 she underwent cardiac catheterization revealing minimal nonobstructive coronary artery disease and hyperdynamic LV. EKG reveals sinus mechanism, left ventricular hypertrophy, left atrial enlargement and poor R-wave progression. Chest x-ray is negative for an acute cardiopulmonary process. Laboratory data reviewed, CBC unremarkable, cardiac enzymes negative 1, proBNP 157, Current daily cardiac medications include Toprol 25 mg daily. At the time of my exam: CONSTITUTIONAL: Denies fever. Denies chills. EYES: Denies blurred vision. Denies vision changes. Denies eye pain. EARS, NOSE, MOUTH & THROAT: Denies headache. Denies sore throat. Denies ear pain. CARDIOVASCULAR: Complains of chest pain. Denies shortness of breath. Denies o rthopnea. Denies PND. Denies palpitations. RESPIRATORY: Complains of cough. GASTROINTESTINAL: Denies abdominal pain. Denies diarrhea. Denies constipation. Denies nausea. Denies vomiting. MUSCULOSKELETAL: Denies myalgias. INTEGUMENTARY: Denies pruitis. Denies rash. NEUROLOGIC: Denies numbness. Denies tingling. Denies weakness. PSYCHIATRIC: Denies anxiety. Denies depression. ENDOCRINE: Denies fatigue. Denies weight change. Denies polydipsia. Denies polyurina. GENITOURINARY: Denies burning, hematuria or urgency with micturation. HEMATOLOGIC: Denies history of anemia. Denies bleeding. Blood pressure 110/57 heart rate 55 afebrile maintaining oxygen saturation on room air GENERAL: This is a 43-year-old -[place] female in no apparent distress at the time of my examination. HEENT: Head is atraumatic, normocephalic. Pupils are equal, round. Sclerae anicteric. Conjunctivae are clear. Mucous membranes of the mouth are moist. Neck is supple. There is no jugular venous distention. No carotid bruit is heard. LUNGS: Clear to auscultation no wheezes, rales or rhonchi. No chest wall tender ness is noted on palpation or with deep breathing. HEART: Regular rate and rhythm with systolic ejection murmur at the base, no rubs or gallops. S1 and S2 heard. ABDOMEN: Soft, nontender. Bowel sounds are heard. No organomegaly noted. EXTREMITIES: No evidence of peripheral edema and no calf tenderness noted. VASCULAR: Radial and dorsalis pedis pulses palpated, no evidence of clubbing. NEUROLOGIC: Patient is awake, alert and oriented x3. ASSESSMENT Chest pain, atypical. Hypertrophic obstructive cardiomyopathy Asthma Sleep apnea Morbid obesity, BMI 43 PLAN Pain is atypical for angina. Appears musculoskeletal in nature with pleuritic features and upper respiratory symptoms. Continue to obtain serial cardiac enzymes to rule out an acute event. Recent echo in the office has been reviewed with the patient. Resume toprol 25 mg daily. Ongoing medical management. Thank you kindly for this consultation. Nurse Practitioner note has been reviewed, I agree with a documented findings and plan of care. Patient was seen and examined. Past Medical History Past Medical History: Atrial Fibrillation, Pneumonia, Sleep Apnea/CPAP/BIPAP Additional Past Medical History / Comment(s): 2013 fell and had bruised heart and fall caused coronary blockages, hypertrophic cardiomyopathy, congenital heart murmur, moderate mitral regurgitation, heat stroke-no deficits, benign pituitary cyst, hypoglycemia, RAFA without device, past anemia, htn with steroid use, "lazy" L eye. History of Any Multi-Drug Resistant Organisms: None Reported Past Surgical History: Adenoidectomy, Breast Surgery, Heart Catheterization, Orthopedic Surgery, Tonsillectomy Additional Past Surgical History / Comment(s): 2013 cardiac cath and SANCHEZ, L breast benign cystectomy, PARI d/t fibroids, bilateral shoulder reconstruction, L knee arthroscopy. Past Anesthesia/Blood Transfusion Reactions: Postoperative Nausea & Vomiting (PONV) Smoking Status: Never smoker - Past Family History Father Family Medical History: Cancer Additional Family Medical History / Comment(s): Father is from lung cancer, he was a smoker. Mother Family Medical History: Hypertension Medications and Allergies Home Medications Medication Instructions Recorded Confirmed Type ALPRAZolam [Xanax] 0.25 tab PO DAILY PRN 04/28/16 05/04/19 History Citalopram Hydrobromide [CeleXA] 20 mg PO DAILY 04/28/16 05/04/19 History Ergocalciferol [Vitamin D2 50,000 units PO Q14D 04/28/16 05/04/19 History (DRISDOL)] Albuterol Inhaler [Ventolin Hfa 2 puff INHALATION RT-Q6H PRN 11/17/16 05/04/19 History Inhaler] Metoprolol Succinate (ER) [Toprol 25 mg PO DAILY 05/04/19 05/04/19 History Xl] Montelukast [Singulair] 10 mg PO DAILY PRN 05/04/19 05/04/19 History Allergies Allergy/AdvReac Type Severity Reaction Status Date / Time No Known Allergies Allergy Verified 05/04/19 10:56 Physical Exam Vitals: Vital Signs Temp Pulse Pulse Resp BP Pulse Ox 05/04/19 13:00 97.6 F 52 L 16 112/67 97 05/04/19 12:00 55 L 16 110/57 99 05/04/19 11:07 88 16 131/84 98 05/04/19 11:00 134/81 05/04/19 10:50 56 L 05/04/19 10:49 56 L 16 127/79 98 05/04/19 10:29 51 L 15 99 05/04/19 10:04 99 F 54 L 18 115/76 99 Intake and Output 05/03/19 05/04/19 05/04/19 22:59 06:59 14:59 Other: Weight 117.934 kg Results 05/04/19 10:25 05/04/19 10:25 Cardiac Enzymes 05/04/19 05/04/19 Range/Units 10:25 10:25 AST 30 (14-36) U/L Troponin I <0.012 (0.000-0.034) ng/mL Coagulation 05/04/19 Range/Units 10:25 PT 10.5 (9.0-12.0) sec APTT 24.9 (22.0-30.0) sec CBC 05/04/19 Range/Units 10:25 WBC 7.1 (3.8-10.6) k/uL RBC 4.38 (3.80-5.40) m/uL Hgb 13.5 (11.4-16.0) gm/dL Hct 40.7 (34.0-46.0) % Plt Count 212 (150-450) k/uL Comprehensive Metabolic Panel 05/04/19 Range/Units 10:25 Sodium 139 (137-145) mmol/L Potassium 4.5 (3.5-5.1) mmol/L Chloride 105 (98-107) mmol/L Carbon Dioxide 23 (22-30) mmol/L BUN 12 (7-17) mg/dL Creatinine 0.84 (0.52-1.04) mg/dL Glucose 82 (74-99) mg/dL Calcium 9.6 (8.4-10.2) mg/dL AST 30 (14-36) U/L ALT 33 (9-52) U/L Alkaline Phosphatase 46 (38-126) U/L Total Protein 7.5 (6.3-8.2) g/dL Albumin 4.2 (3.5-5.0) g/dL Current Medications Generic Name Dose Route Start Last Admin Trade Name Noman PRN Reason Stop Dose Admin Aspirin 325 mg 05/05/19 09:00 Aspirin PO DAILY [facility] Heparin Sodium (Porcine) 0 unit 05/04/19 12:06 Heparin IV PER PROTOCOL PRN Low PTT Protocol Heparin Sodium/Sodium Chloride 250 mls @ 9.906 mls/hr 05/04/19 12:15 05/04/19 12:24 25,000 unit/ Sodium Chloride IV 8.4 units/kg/hr .Q24H CHEYANNE 9.906 mls/hr Administration Protocol 8.4 UNITS/KG/HR Nitroglycerin 0.4 mg 05/04/19 12:12 Nitrostat SUBLINGUAL Q5M PRN Chest Pain Intake and Output 05/03/19 05/04/19 05/04/19 22:59 06:59 14:59 Other: Weight 117.934 kg Patient Weight 05/05/19 06:59 Weight 117.934 kg 05/04/19 10:25 05/04/19 10:25
[2019-05-05 06:04] LABS: Basophils % (A) 0 %; Eosinophils # (A) 0.2 k/uL (0-0.7); Eosinophils % (A) 3 %; HCT 39.3 % (34.0-46.0); HGB 12.9 gm/dL (11.4-16.0); Lymphocytes # (A) 2.6 k/uL (1.0-4.8); Lymphocytes % (A) 36 %; MCHC 32.9 g/dL (31.0-37.0); MCV 94.1 fL (80.0-100.0); Monocytes # (A) 0.5 k/uL (0-1.0); Monocytes % (A) 7 %; Neutrophils # (A) 3.7 k/uL (1.3-7.7); Neutrophils % (A) 51 %; Platelet Count 169 k/uL (150-450); RBC 4.18 m/uL (3.80-5.40); RDW 12.8 % (11.5-15.5); WBC 7.4 k/uL (3.8-10.6)
[2019-05-05 06:14] LABS: Cholesterol 166 mg/dL (<200); HDL Cholesterol 47 mg/dL (40-60); LDL Cholesterol,Calculated 104 mg/dL (0-99); Triglycerides 76 mg/dL (<150)
[2019-05-05 07:35] VITALS: TEMP 97.9
[2019-05-05] MEDS ORDERED: METOPROLOL SUCCINATE (ER) 25 MG TAB.ER.24H PO SCH (09:00)
[2019-05-05] MEDS ORDERED: ASPIRIN 325 MG TAB PO SCH (09:00)
[2019-05-05] MEDS ORDERED: CITALOPRAM HYDROBROMIDE 20 MG TAB PO SCH (09:00)
[2019-05-05 11:29] VITALS: BP 105/69; PULSE 58
--- NOTE | 2019-05-05 12:18 | P.DS ---
Providers Date of admission: 05/04/19 12:45 Expected date of discharge: 05/05/19 Attending physician: Larry Luther Consults: 05/04/19 12:12 Consult Physician Urgent Consulting Provider: Vishal Sanders Consult Reason/Comments: chest pain, HOCM Do you want consulting provider notified?: Yes Primary care physician: [facility] Course: This is a 43-year-old -Russian female one of Dr. Guido with a previous medical history significant for obstructive cardiomyopathy patient has been having significant chest pain on and off for the past week associated with increased headache as well as increased nausea with increased shortness of breath this is happening with exertion as well as with rest patient was supposed to follow-up with Dr. Sanders as an outpatient to have an echocardiogram in 05/09/2019, she went to the office to see him today however she was rectal to go to the emergency department at [place] [id number] she did not show any evidence of acute of normalities, troponins were negative however because of the presentation he was recommended for the patient to be admitted and seen in consultation by cardiology she was placed on heparin drip, aspirin, she was given a glycerin which helped her pain quite a bit. Patient was admitted to the hospital for further evaluation. 05/05: Patient has been seen by cardiology for chest pain most likely musculoske letal with pleuritic features and upper respiratory symptoms. Cardiac enzymes have all been negative. Patient has been cleared from cardiology for discharge home. Patient denies any chest pain or shortness of breath at this time. Patient will be discharged in stable condition. Discharge diagnoses: 1. Chest pain in patient with history of hypertrophic obstructive c ardiomyopathy. Musculoskeletal chest pain. 2. Hypertrophic obstructive cardiomyopathy. 3. Generalized anxiety disorder. 4. Vitamin D deficiency. 5. Asthma, mild intermittent. 6. Obstructive sleep apnea. Currently not on a CPAP since her AHI is not high. Discharge plan: Home Impression and plan of care have been directed as dictated by the signing physician. Kasie Yu nurse practitioner acting as scribe for signing physician. Patient Condition at Discharge: Good Plan - Discharge Summary Discharge Rx Participant: No New Discharge Prescriptions: Continue Ergocalciferol [Vitamin D2 (DRISDOL)] 50,000 units PO Q14D Citalopram Hydrobromide [CeleXA] 20 mg PO DAILY ALPRAZolam [Xanax] 0.25 tab PO DAILY PRN PRN Reason: Anxiety Albuterol Inhaler [Ventolin Hfa Inhaler] 2 puff INHALATION RT-Q6H PRN PRN Reason: Cough Montelukast [Singulair] 10 mg PO DAILY PRN PRN Reason: Allergy Symptoms Metoprolol Succinate (ER) [Toprol XL] 25 mg PO DAILY Discharge Medication List ALPRAZolam [Xanax] 0.25 tab PO DAILY PRN 04/28/16 [History] Citalopram Hydrobromide [CeleXA] 20 mg PO DAILY 04/28/16 [History] Ergocalciferol [Vitamin D2 (DRISDOL)] 50,000 units PO Q14D 04/28/16 [History] Albuterol Inhaler [Ventolin Hfa Inhaler] 2 puff INHALATION RT-Q6H PRN 11/17/16 [History] Metoprolol Succinate (ER) [Toprol XL] 25 mg PO DAILY 05/04/19 [History] Montelukast [Singulair] 10 mg PO DAILY PRN 05/04/19 [History] Follow up Appointment(s)/Referral(s): Vishal Sanders MD [STAFF PHYSICIAN] - 05/09/19 4:15 pm Neo Guido MD [Primary Care Provider] - 1-2 days Patient Instructions/Handouts: Chest Pain (DC)
[2019-05-18] MEDS ORDERED: ERGOCALCIFEROL 50,000 UNIT CAP PO SCH (09:00)
== END 2019-05-05 12:25 | disposition home or self-care (01) ==
LOC: EC 10:00 → 1SOBS 12:45
PROVIDERS: ADMIT Internal Medicine; ATTEND Internal Medicine
DX: R07.89 Other chest pain (principal); I42.1 Obstructive hypertrophic cardiomyopathy; J45.20 Mild intermittent asthma, uncomplicated; F41.1 Generalized anxiety disorder; E55.9 Vitamin D deficiency, unspecified; G47.33 Obstructive sleep apnea (adult) (pediatric); I34.0 Nonrheumatic mitral (valve) insufficiency; I48.91 Unspecified atrial fibrillation; E23.6 Other disorders of pituitary gland; H53.002 Unspecified amblyopia, left eye; R11.2 Nausea with vomiting, unspecified; R51 Headache; E66.01 Morbid (severe) obesity due to excess calories; Z68.41 Body mass index [BMI] 40.0-44.9, adult; Z79.899 Other long term (current) drug therapy; Z87.01 Personal history of pneumonia (recurrent); Z87.828 Personal history of other (healed) physical injury and trauma; Z86.39 Personal history of other endocrine, nutritional and metabolic disease; I25.2 Old myocardial infarction; Z80.9 Family history of malignant neoplasm, unspecified; Z80.1 Family history of malignant neoplasm of trachea, bronchus and lung; Z82.49 Family history of ischemic heart disease and other diseases of the circulatory system; Z81.2 Family history of tobacco abuse and dependence
CPT/HCPCS: 96366; 96376; 96365; 99291; 36415; 93005; 85379; 83880; 80061; 80053; 83735; 84484; 85025 ×2; 85610; 85730 ×2; 71046; G0378 ×2; J1644 ×2; 96374; 99285

== ENCOUNTER → 2019-05-30 | Outpatient (CLI) | payer BC ==
--- NOTE | 2019-05-30 09:02 | USB ---
Reason for exam: clinical finding. History: Patient is nulliparous. Family history of breast cancer in sister at age 39. Benign excisional biopsy of the left breast, 2008. Took hormonal contraceptives for 7 years beginning at age 17. Indicated problem(s): large axillary lymph nodes in the left breast. Physical Findings: Nurse Summary: Patient complains of left beast lump x 1 year, increased in size, 1cm nodule in the left breast at 11 o'clock, white/clear nipple discharge bilateral breast with compression (nurse mj). US Breast LT Left complete breast ultrasound includes all four quadrants, the retroareolar region and axilla. Finding demonstrates a 1.0 x 0.6 x 0.9cm probable lymph node at 2 o'clock versus 10 x 7 x 9mm previously. No other solid or cystic lesion. Palpable at 11 o'clock shows no discrete abnormality. These results were verbally communicated with the patient and result sheet given to the patient on 05/30/19. ASSESSMENT: Incomplete: need additional imaging evaluation, BI-RAD 0 RECOMMENDATION: Special view mammogram of both breasts. (3D) Overdue for annual exam.
--- NOTE | 2019-05-30 09:04 | MM ---
Reason for exam: additional evaluation requested from prior study. Last mammogram was performed 1 year and 5 months ago. History: Patient is nulliparous. Family history of breast cancer in sister at age 39. Benign excisional biopsy of the left breast, 2008. Took hormonal contraceptives for 7 years beginning at age 17. MG 3D Diag Mammo W/Cad CAIO Bilateral CC and MLO view(s) were taken. Prior study comparison: December 28, 2017, bilateral MG diagnostic mammo w CAD CAIO. July 18, 2016, bilateral MG diagnostic mammo w CAD CAIO. The breast tissue is heterogeneously dense. This may lower the sensitivity of mammography. Stable intramammary node left upper outer quadrant seen on ultrasound. Palpable marker at 11 o'clock. No underlying abnormality. These results were verbally communicated with the patient and result sheet given to the patient on 05/30/19. ASSESSMENT: Benign, BI-RAD 2 RECOMMENDATION: Routine screening mammogram of both breasts in 1 year. Manage on a clinical basis with regard to any suspicious palpables and white bilateral nipple discharge.
== END | disposition home or self-care (01) ==
LOC: RADUSWWP 06:57
PROVIDERS: ATTEND Nurse Practitioner Family
DX: R92.8 Other abnormal and inconclusive findings on diagnostic imaging of breast (principal); N63.20 Unspecified lump in the left breast, unspecified quadrant
CPT/HCPCS: 77062; 77066

== ENCOUNTER → 2019-06-02 | Outpatient (CLI) | payer BC ==
[2019-06-02 14:16] VITALS: BP 134/81; PULSE 84; RESP 16; TEMP 98.7; BMI 42.6
--- NOTE | 2019-06-02 15:53 | P.HPBAR ---
Bariatric H&P - History & Physicial H&P Date: 06/02/19 History & Physicial: Visit/CC: Initial Visit Patient initial contact: Initial weight: 107.365 kg Initial weight in pounds: 236.70 Height: 5 ft 5 in Initial BMI: 39.4 Last weight: Current weight: 116.29 kg Current weight in pounds: 256.38 Current BMI: 42.6 [place] body weight (based on NIH guidelines): 56.699 kg Excess body weight loss: The patient is a 43 year-old F who presents for Bariatric Assessment. Patient is a 43-year-old female here today to discuss options of sleeve gastrectomy. She was actually first seen in May 2016. Apparently she had other health issues at that time that led to her postponing her sleeve gastrectomy. She went to a recent seminar. She is not interested in gastric bypass given the long- term risks that were described to her. Patient has hypertrophic cardiomyopathy. Her medical assembler has been supportive of her having bariatric surgery. Patient also suffers from asthma and mild GERD symptoms. Denies DVT or dysphagia. She just started a 7 month supervised weight loss process. BMI currently 42. Review of Systems The patient denies any acute changes in vision or hearing, no dysphagia or odynophagia, no chest pain or shortness of breath, no dysuria or hematuria, no headache, no runny nose, no rectal bleeding or melena, no unexplained weight loss Past Medical History Past Medical History: Atrial Fibrillation, Pneumonia, Sleep Apnea/CPAP/BIPAP Additional Past Medical History / Comment(s): 2012 FELL AND BRUISED HEART CAUSING SLIGHT BLOCKAGE, CONGENITAL HEART MURMUR, CYST ON PITUITARY GLAND, HYPOGLYCEMIA. "heat stroke few years ago", no cpap, hx anemia, lazy left eye, hypertrophic obstructive cardiomyopathy (under care of Dr. Vishal Sanders), History of Any Multi-Drug Resistant Organisms: None Reported Past Surgical History: Adenoidectomy, Breast Surgery, Heart Catheterization, Hysterectomy, Orthopedic Surgery, Tonsillectomy Additional Past Surgical History / Comment(s): SANCHEZ, bl shoulder reconstructions, left knee arthroscopy, cyst removed from left breast, Past Anesthesia/Blood Transfusion Reactions: Postoperative Nausea & Vomiting (PONV) Smoking Status: Never smoker - Past Family History Father Family Medical History: Cancer Additional Family Medical History / Comment(s): Father is from lung cancer, he was a smoker. Mother Family Medical History: Hypertension Brother(s) Family Medical History: No Reported History Sister(s) Family Medical History: No Reported History Additional Family Medical History / Comment(s): Patient has no children she has one adopted and 2 stepchildren. Surgical - Exam Vital Signs Temp Pulse Resp BP 98.7 F 84 16 134/81 06/02/19 14:12 06/02/19 14:12 06/02/19 14:12 06/02/19 14:12 Physical exam: General: Well-developed, well-nourished HEENT: Normocephalic, sclerae nonicteric Abdomen: Nontender, nondistended Extremities: No edema Neuro: Alert and oriented Bariatric Assessment & Plan (1) Morbid obesity Narrative/Plan: Surgical options again reviewed in detail with the patient. She remains interested in sleeve gastrectomy. The risks associated with the sleeve and the anticipated weight loss described. Will plan upper endoscopy in September or October of next year. Following that we'll get scheduled for sleeve gastrectomy. Status: Acute Bariatric Checklist Checklist: Plan: Checklist: EGD: 1. Hiatal hernia: 2. H. Pylori: HgbA1c: Vitamin D: Smoking: Never smoker Primary care physician referral: Hay/ Regan (medical assembler) Psychiatry clearance: Cardiology clearance: Sleep study: Diet journal: VTE risk score: VTE risk level: Rehab needs at discharge:
[2019-06-02 16:21] LABS: HCT 37.7 % (34.0-46.0); HGB 12.7 gm/dL (11.4-16.0); MCH 31.5 pg (25.0-35.0); MCHC 33.6 g/dL (31.0-37.0); MCV 93.6 fL (80.0-100.0); Mean Platelet Volume 11.3; Platelet Count 209 k/uL (150-450); RBC 4.02 m/uL (3.80-5.40); RDW 13.8 % (11.5-15.5)
[2019-06-03 00:55] LABS: Iron Saturation 24.63 (12.00-45.00)
[2019-06-03 01:03] LABS: Vitamin D 25 Hydroxy 28.5 ng/mL (30.0-100.0)
[2019-06-03 01:04] LABS: African American GFR (CKD) 79.3 (60.0-200.0); Albumin 4.4 g/dL (3.80-4.90); Anion Gap 11.4 mmol/L (4.00-12.00); Calcium 9.4 mg/dL (8.7-10.3); Carbon Dioxide 22.6 mmol/L (21.6-31.8); Globulin 2.2 g/dL (1.6-3.3); Potassium 4.2 mmol/L (3.5-5.5); Total Bilirubin 0.4 mg/dL (0.2-1.2); Total Protein 6.6 g/dL (6.2-8.2)
[2019-06-03 02:09] LABS: Hemoglobin A1C 5.3 % (4.0-6.0)
== END | disposition home or self-care (01) ==
LOC: BARWHC3 13:53
PROVIDERS: ATTEND Surgery
DX: E66.01 Morbid (severe) obesity due to excess calories (principal); D50.9 Iron deficiency anemia, unspecified; E44.0 Moderate protein-calorie malnutrition; E55.9 Vitamin D deficiency, unspecified; Z68.41 Body mass index [BMI] 40.0-44.9, adult
CPT/HCPCS: 80053; 82306; 82607; 83036; 83540; 83550; 84443; 85027; 99211

== ENCOUNTER → 2019-08-16 | Outpatient (CLI) | payer BC ==
[2019-08-16 14:07] VITALS: BP 124/85; PULSE 90; TEMP 98.5; BMI 43.2
== END | disposition home or self-care (01) ==
LOC: BARWHC3 13:27
PROVIDERS: ATTEND Surgery
DX: E66.01 Morbid (severe) obesity due to excess calories (principal); Z68.41 Body mass index [BMI] 40.0-44.9, adult
CPT/HCPCS: 99211

== ENCOUNTER 2019-08-29 13:25 | Day surgery (SDC) | payer BC ==
[2019-08-25 16:07] VITALS: BMI 43.6
[~2019-08-29 13:25] MED LIST changes: -DEXAMETHASONE SOD PHOSPHATE 10 MG/ML 1 ML VIAL IV ONE; -HYDROmorphone 1 MG/ML 1 ML SYRINGE IVP PRN; +LACTATED RINGERS 1,000 ML IV SCH; +LIDOCAINE 1% 20 ML VIAL (10MG/ML) FOR IV START INTRADERMA PRN; -MIDAZOLAM 2 MG/2 ML VIAL IV PRN; -ONDANSETRON 4 MG/2 ML VIAL IVP ONE; -SCOPOLAMINE 1.5MG/72HR PATCH TRANSDERM ONE; -ceFAZolin 2 GM in SODIUM CHLORIDE 0.9% 100 ML IVPB ONE
[2019-08-29 13:58] VITALS: TEMP 98.2
[2019-08-29 14:19] LABS: Glucose,Whole Blood 81 mg/dL (75-99)
[2019-08-29] MEDS ORDERED: LIDOCAINE 1% INJ 10MG/ML (20 ML MDV) ONE (14:51)
[2019-08-29] MEDS ORDERED: PROPOFOL 10 MG/ML 20 ML VIAL IV ONE (14:51)
--- NOTE | 2019-08-29 14:54 | P.GSHP ---
History of Present Illness H&P Date: 08/29/19 Chief Complaint: Morbid obesity/GERD 43-year-old female known to our service. Seen in the bariatric center. Interested in sleeve gastrectomy. Patient has complaints of mild abdominal discomfort as well. Recent ultrasound showed gallstones. Complains of mild reflux. Past Medical History Past Medical History: Asthma, Pneumonia, Sleep Apnea/CPAP/BIPAP Additional Past Medical History / Comment(s): 2012 fell and had bruised heart and fall caused coronary blockages, hypertrophic cardiomyopathy, congenital heart murmur, moderate mitral regurgitation, benign pituitary cyst, hypoglycemia, RAFA without device, past anemia, htn with steroid use, "lazy" L eye. History of Any Multi-Drug Resistant Organisms: None Reported Past Surgical History: Adenoidectomy, Breast Surgery, Heart Catheterization, Hysterectomy, Orthopedic Surgery, Tonsillectomy Additional Past Surgical History / Comment(s): 2013 cardiac cath and SANCHEZ, L breast benign cystectomy, bilateral shoulder reconstruction, L knee arthroscopy. Past Anesthesia/Blood Transfusion Reactions: Postoperative Nausea & Vomiting (PONV) Smoking Status: Never smoker - Past Family History Father Family Medical History: Cancer Additional Family Medical History / Comment(s): Father is from lung cancer, he was a smoker. Mother Family Medical History: Hypertension Brother(s) Family Medical History: No Reported History Sister(s) Family Medical History: No Reported History Additional Family Medical History / Comment(s): Patient has no children she has one adopted and 2 stepchildren. Medications and Allergies Home Medications Medication Instructions Recorded Confirmed Type ALPRAZolam [Xanax] 0.25 tab PO DAILY PRN 04/28/16 08/29/19 History Citalopram Hydrobromide [CeleXA] 20 mg PO DAILY 04/28/16 08/29/19 History Ergocalciferol [Vitamin D2 50,000 units PO Q14D 04/28/16 08/29/19 History (DRISDOL)] Albuterol Inhaler [Ventolin Hfa 2 puff INHALATION RT-Q6H PRN 11/17/16 08/29/19 History Inhaler] Metoprolol Succinate (ER) [Toprol 25 mg PO QAM 05/04/19 08/29/19 History XL] Montelukast [Singulair] 10 mg PO DAILY PRN 05/04/19 08/29/19 History Allergies Allergy/AdvReac Type Severity Reaction Status Date / Time No Known Allergies Allergy Verified 08/29/19 13:52 Surgical - Exam Vital Signs Temp Pulse Resp BP Pulse Ox 98.2 F 57 L 18 120/57 97 08/29/19 13:53 08/29/19 13:53 08/29/19 13:53 08/29/19 13:53 08/29/19 13:53 Physical exam: General: Well-developed, well-nourished HEENT: Normocephalic, sclerae nonicteric Abdomen: Nontender, nondistended Extremities: No edema Neuro: Alert and oriented Assessment and Plan (1) GERD (gastroesophageal reflux disease) Narrative/Plan: Will proceed with upper endoscopy. Follow-up in the general surgery office to discuss gallstones. Current Visit: Yes Status: Acute Code(s): K21.9 - GASTRO-ESOPHAGEAL REFLUX DISEASE WITHOUT ESOPHAGITIS SNOMED Code(s): 956569648
--- NOTE | 2019-08-29 15:02 | P.PCN ---
Date of Procedure: 08/29/19 Procedure(s) Performed: Preoperative Dx: GERD, presurgical Postoperative Dx: Mild gastritis Procedure: EGD with Bx Anesthesia: Sedation Endoscopist: Dr. Melendez Specimens: Antrum Endoscopic Procedure: The patient was on the endoscopy table in the left decubitus position. The Olympus gastroscope was inserted into the oropharynx and passed under direct visualization to the region of the third portion of the duodenum. From that point the scope was slowly withdrawn inspecting all surfaces carefully. There were no neoplastic inflammatory or polypoid lesions throughout the duodenum. The pylorus was widely patent. The stomach was carefully inspected. There was mild gastritis present. A biopsy of the antrum took place to rule out H. pylori. Retroflexion revealed a normal hiatus. The esophagus was then carefully examined. There were no neoplastic inflammatory or polypoid lesions throughout the visualized esophagus. The patient was then taken to the recovery room in stable condition per anesthesia guidelines. Recommendations: Await biopsy results. Follow-up in my general surgery office to discuss recent findings of gallstones.
[2019-08-29 15:04] VITALS: RESP 16
[2019-08-29 15:15] VITALS: BP 152/69; PULSE 56
== END 2019-08-29 15:32 | disposition home or self-care (01) ==
LOC: ORWHC2ENDO 13:25
PROVIDERS: ATTEND Surgery
DX: Z01.818 Encounter for other preprocedural examination (principal); K29.50 Unspecified chronic gastritis without bleeding; K21.9 Gastro-esophageal reflux disease without esophagitis; K80.80 Other cholelithiasis without obstruction; J45.909 Unspecified asthma, uncomplicated; G47.33 Obstructive sleep apnea (adult) (pediatric); I42.2 Other hypertrophic cardiomyopathy; I34.0 Nonrheumatic mitral (valve) insufficiency; I10 Essential (primary) hypertension; E23.6 Other disorders of pituitary gland; H53.002 Unspecified amblyopia, left eye; F32.9 Major depressive disorder, single episode, unspecified; E66.01 Morbid (severe) obesity due to excess calories; Z68.41 Body mass index [BMI] 40.0-44.9, adult; Z87.01 Personal history of pneumonia (recurrent); Z91.81 History of falling; Z87.828 Personal history of other (healed) physical injury and trauma; Z86.2 Personal history of diseases of the blood and blood-forming organs and certain disorders involving the immune mechanism; Z90.89 Acquired absence of other organs; Z98.890 Other specified postprocedural states; Z90.710 Acquired absence of both cervix and uterus; Z87.898 Personal history of other specified conditions; Z79.899 Other long term (current) drug therapy; Z80.1 Family history of malignant neoplasm of trachea, bronchus and lung; Z82.49 Family history of ischemic heart disease and other diseases of the circulatory system
CPT/HCPCS: 88305; 43239; J2001; J2704

== ENCOUNTER → 2019-09-19 | Outpatient (CLI) | payer BC ==
[2019-09-19 09:36] VITALS: BMI 43.4
== END | disposition home or self-care (01) ==
LOC: BARWHC3 08:36
PROVIDERS: ATTEND Surgery
DX: E66.01 Morbid (severe) obesity due to excess calories (principal); Z68.41 Body mass index [BMI] 40.0-44.9, adult
CPT/HCPCS: 97804

== ENCOUNTER 2019-10-21 09:45 | Observation (INO) | payer BC ==
[2019-10-19 14:09] VITALS: BMI 43.2
[~2019-10-21 09:45] MED LIST changes: +DEXAMETHASONE SOD PHOSPHATE 10 MG/ML 1 ML VIAL IV ONE; +HEPARIN SODIUM,PORCINE 5,000 UNIT/ML 1 ML VIAL SQ ONE; +SCOPOLAMINE 1.5MG/72HR PATCH TRANSDERM ONE
[2019-10-21] MEDS ORDERED: METOPROLOL SUCCINATE (ER) 25 MG TAB.ER.24H PO STA (10:15)
[2019-10-21] MEDS: ONDANSETRON 4 MG/2 ML VIAL IVP ONE ×2 (10:25→13:40)
--- NOTE | 2019-10-21 11:46 | P.GSHP ---
History of Present Illness H&P Date: 10/21/19 Chief Complaint: Chronic cholecystitis Patient here today for laparoscopic cholecystectomy. Was previously scheduled but canceled for cardiac clearance. Patient with history of gallbladder sludge. Intermittent right upper quadrant pains. Mild nausea at times. No vomiting. No change in the color of her skin urine or stool. Past Medical History Past Medical History: Asthma, Osteoarthritis (OA), Pneumonia, Sleep Apnea/CPAP/BIPAP Additional Past Medical History / Comment(s): 2013 Hx fall bruised heart , hypertrophic obstructive cardiomyopathy, congenital heart murmur, moderate mitral regurgitation, benign pituitary cyst, past hx hypoglycemia, RAFA -No device, past anemia, htn with steroid use, "lazy" L eye., pneumonia (2018), Hx IBS, states arthritis knees., diarrhea. History of Any Multi-Drug Resistant Organisms: None Reported Past Surgical History: Adenoidectomy, Breast Surgery, Heart Catheterization, Hysterectomy, Orthopedic Surgery, Tonsillectomy Additional Past Surgical History / Comment(s): 2013 cardiac cath and SANCHEZ, L breast benign cystectomy, bilateral shoulder reconstruction, L knee arthroscopy. Past Anesthesia/Blood Transfusion Reactions: Postoperative Nausea & Vomiting (PONV) Smoking Status: Never smoker - Past Family History Father Family Medical History: Cancer Additional Family Medical History / Comment(s): Father is from lung cancer, he was a smoker. Mother Family Medical History: Hypertension Brother(s) Family Medical History: No Reported History Sister(s) Family Medical History: No Reported History Additional Family Medical History / Comment(s): . Medications and Allergies Home Medications Medication Instructions Recorded Confirmed Type ALPRAZolam [Xanax] 0.25 tab PO HS PRN 04/28/16 10/21/19 History Citalopram Hydrobromide [CeleXA] 20 mg PO DAILY 04/28/16 10/21/19 History Ergocalciferol [Vitamin D2 50,000 units PO Q14D 04/28/16 10/21/19 History (DRISDOL)] Albuterol Inhaler [Ventolin Hfa 2 puff INHALATION RT-Q6H PRN 11/17/16 10/21/19 History Inhaler] Metoprolol Succinate (ER) [Toprol 25 mg PO QAM 05/04/19 10/21/19 History XL] Montelukast [Singulair] 10 mg PO HS PRN 05/04/19 10/21/19 History Advair Inhaler (Unknown Dose) 1 puff INHALATION DIRECTED PRN 09/28/19 10/21/19 History Allergies Allergy/AdvReac Type Severity Reaction Status Date / Time No Known Allergies Allergy Verified 10/21/19 09:57 Surgical - Exam Vital Signs Temp Pulse Resp BP Pulse Ox 98 F 67 16 149/87 98 10/21/19 10:24 10/21/19 10:24 10/21/19 10:24 10/21/19 10:24 10/21/19 10:24 Physical exam: General: Well-developed, well-nourished HEENT: Normocephalic, sclerae nonicteric Abdomen: Nontender, nondistended Extremities: No edema Neuro: Alert and oriented Assessment and Plan (1) Chronic cholecystitis Narrative/Plan: Will proceed with laparoscopic, possible open cholecystectomy at this time. Risks of bleeding, infection, bile leak, bile duct injury, retained common bile duct stone, trocar injury, conversion to an open procedure, hernia, anesthesia related complications were reviewed. The patient understands and wishes to proceed. Current Visit: Yes Status: Acute Code(s): K81.1 - CHRONIC CHOLECYSTITIS SNOMED Code(s): 38896045
[2019-10-21] MEDS ORDERED: GLYCOPYRROLATE 0.2 MG/ML 2 ML VIAL ONE (11:50)
[2019-10-21] MEDS ORDERED: ePHEDrine SULFATE/0.9% NACL/PF 50 MG/5 ML SYRINGE IV ONE (11:50)
[2019-10-21] MEDS ORDERED: PROPOFOL 10 MG/ML 20 ML VIAL IV ONE (11:50)
[2019-10-21] MEDS ORDERED: LIDOCAINE 1% INJ 10MG/ML (20 ML MDV) ONE (11:50)
[2019-10-21] MEDS ORDERED: NEOSTIGMINE 1 MG/ML 10 ML VIAL ONE (11:50)
[2019-10-21] MEDS ORDERED: ROCURONIUM BROMIDE 10 MG/ML 5 ML VIAL IV ONE (11:50)
[2019-10-21] MEDS ORDERED: MIDAZOLAM 2 MG/2 ML VIAL ONE (11:50)
[2019-10-21] MEDS ORDERED: fentaNYL (PF) 50 MCG/ML 2 ML AMP ONE (11:50)
[2019-10-21] MEDS ORDERED: LACTATED RINGERS 1,000 ML IV ONE (12:02)
[2019-10-21] MEDS ORDERED: BUPIVACAINE (PF) 0.25% 30 ML VIAL SQ ONE ×2 (12:21)
[2019-10-21] MEDS ORDERED: ONDANSETRON 4 MG/2 ML VIAL IVP PRN (13:11)
[2019-10-21] MEDS ORDERED: HYDROmorphone 0.5 MG/0.5 ML SYRINGE IVP PRN (13:11)
[2019-10-21] MEDS ORDERED: HYDROcodone/APAP 5-325MG 1 EACH TAB PO PRN (13:11)
[2019-10-21] MEDS ORDERED: NALOXONE 0.4 MG/ML 1 ML VIAL IV PRN (13:11)
--- NOTE | 2019-10-21 13:14 | P.OP ---
Date of Procedure: 10/21/19 Procedure(s) Performed: PREOPERATIVE DIAGNOSIS: Chronic cholecystitis POSTOPERATIVE DIAGNOSIS: Same PROCEDURE: Laparoscopic cholecystectomy SURGEON: Nora EBL: Minimal see anesthesia record ANESTHESIA: Gen. COMPLICATIONS: None OPERATIVE PROCEDURE: The patient was brought and placed on the operating room table in the supine position. The patient was placed under general anesthesia at that time. The abdomen was prepped and draped in the usual sterile fashion. A small vertical infraumbilical incision was made. The fascia was grasped with the Bebo forceps. The fascia was retracted anteriorly. The Veress needle was advanced into the peritoneal cavity. The saline drop test was normal. Insufflation took place up to 15 mmHg. A 5 mm optical trocar was advanced and the peritoneal cavity. 2 additional 5 mm trochars were placed in the right upper quadrant under direct visualization. A 12 mm trocar was advanced into the epigastric incision site. The gallbladder was retracted superiorly and laterally. The peritoneum overlying the infundibulum was bluntly dissected. The patient's cystic duct was visualized. The junction between the cystic duct common and hepatic duct was identified. The cystic duct was then divided after placement of 3 12 mm clips on the patient's side and one on the specimen side. The cystic artery was identified and clipped as well. A small vessel was seen along the gallbladder fossa and clipped as well. The gallbladder was then removed from the liver bed using electrocautery. The gallbladder was then removed from the epigastric trocar site with an Endo Catch bag. The gallbladder fossa was irrigated with saline. There was no evidence of any bleeding or biliary drainage seen. The fascia at the 12 millimeter site was closed using a Ilir-Chato 0 Vicryl stitch. The trochars were then removed. The skin at all 4 sites was closed using a 4-0 Monocryl stitch. Skin glue was utilized on the incision sites. At the end of this procedure the sponge and needle counts were correct. DISPOSITION: Stable to the recovery room
[2019-10-21] MEDS: HYDROmorphone 0.5 MG/0.5 ML SYRINGE IVP PRN ×2 (13:37→14:06)
[2019-10-21] MEDS: KETOROLAC 30 MG/ML 1 ML VIAL IVP SCH ×2 (15:34→20:24)
[2019-10-21] MEDS: FAMOTIDINE 20 MG TAB PO SCH (20:22)
[2019-10-21] MEDS: D5-0.45% NACL WITH KCL 20MEQ/L 1,000 ML IV SCH (20:23)
[2019-10-22] MEDS: D5-0.45% NACL WITH KCL 20MEQ/L 1,000 ML IV SCH ×3 (01:17→13:46)
[2019-10-22] MEDS: KETOROLAC 30 MG/ML 1 ML VIAL IVP SCH ×3 (02:52→16:46)
[2019-10-22 07:20] LABS: Glucose,Whole Blood 115 mg/dL (75-99)
[2019-10-22] MEDS: FAMOTIDINE 20 MG TAB PO SCH (08:15)
[2019-10-22 08:24] VITALS: RESP 12
[2019-10-22] MEDS ORDERED: ALBUTEROL NEBULIZED 2.5 MG/3 ML INHALATION PRN (12:56)
[2019-10-22] MEDS ORDERED: CITALOPRAM HYDROBROMIDE 20 MG TAB PO SCH (13:00)
[2019-10-22] MEDS ORDERED: METOPROLOL SUCCINATE (ER) 25 MG TAB.ER.24H PO SCH (13:00)
[2019-10-22 15:42] VITALS: BP 94/64; PULSE 69; TEMP 98.2
[2019-10-22] MEDS ORDERED: MONTELUKAST 10 MG TAB PO PRN (21:00)
[2019-10-22] MEDS ORDERED: ALPRAZolam 0.25 MG TAB PO PRN (21:00)
--- NOTE | 2019-10-24 07:54 | P.CONS ---
History of Present Illness - Reason for Consult Consult date: 10/22/19 medical management - History of Present Illness This is a 44-year-old female patient Dr. Guido with past medical history of mild stable asthma, osteoarthritis, obstructive sleep apnea without CPAP, hypertrophic obstructive cardiomyopathy with moderate mitral regurgitation, benign pituitary cyst, irritable bowel syndrome. Patient states that she has been following with Zoe GUILLEN in the office regarding weight loss and she was having abdominal pain, tests were done including ultrasound that revealed gallbladder sludge and patient has been brought in the hospital the care of Dr. Melendez status post laparoscopic cholecystectomy. Patient was monitored overnight due to her history of hypertrophic obstructive cardiomyopathy. Patient has had no postop complications. Patient is been afebrile, heart rate 82, blood pressure 105/62, pulse ox 93% on room air. She denies having any fever or chills. She denies any nausea. She has not had a bowel movement. She is urinating without difficulty. She states she has been up in her room and ambulating. Blood sugar this morning was 115. Review of Systems Constitutional: Denies chills, Denies fatigue, Denies fever, Denies lethargy, Denies malaise, Denies poor appetite, Denies weakness Eyes: denies blurred vision, denies pain Ears, nose, mouth and throat: Denies dysphagia, Denies headache, Denies nasal congestion, Denies nasal discharge, Denies sore throat, Denies vertigo Cardiovascular: Denies chest pain, Denies decreased exercise tolerance, Denies dyspnea on exertion, Denies edema, Denies leg edema, Denies lightheadedness, Denies shortness of breath, Denies syncope Respiratory: Reports sleep apnea, Denies cough, Denies cough with sputum, Denies dyspnea, Denies excessive sputum, Denies hemoptysis, Denies home oxygen, Denies respiratory infections Gastrointestinal: Denies abdominal pain, Denies diarrhea, Denies loss of appetite, Denies nausea, Denies vomiting Genitourinary: Denies dysuria, Denies hematuria, Denies urgency, Denies urinary frequency Musculoskeletal: Denies frequent falls, Denies gait dysfunction, Denies muscle weakness, Denies myalgias Integumentary: Denies pruritus, Denies rash Neurological: Denies numbness, Denies weakness Endocrine: Denies fatigue, Denies weight change Past Medical History Past Medical History: Asthma, Osteoarthritis (OA), Pneumonia, Sleep Apnea/CPAP/BIPAP Additional Past Medical History / Comment(s): 2013 Hx fall bruised heart , hypertrophic obstructive cardiomyopathy, congenital heart murmur, moderate mitral regurgitation, benign pituitary cyst, past hx hypoglycemia, RAFA -No device, past anemia, htn with steroid use, "lazy" L eye., pneumonia (2018), Hx IBS, states arthritis knees., diarrhea. History of Any Multi-Drug Resistant Organisms: None Reported Past Surgical History: Adenoidectomy, Breast Surgery, Heart Catheterization, Hysterectomy, Orthopedic Surgery, Tonsillectomy Additional Past Surgical History / Comment(s): 2013 cardiac cath and SANCHEZ, L b reast benign cystectomy, bilateral shoulder reconstruction, L knee arthroscopy. Past Anesthesia/Blood Transfusion Reactions: Postoperative Nausea & Vomiting (PONV) Past Psychological History: Anxiety, Depression Additional Psychological History / Comment(s): Pt resides with her spouse. She is independent. Smoking Status: Never smoker Past Alcohol Use History: None Reported Past Drug Use History: None Reported - Past Family History Father Family Medical History: Cancer Additional Family Medical History / Comment(s): Father is from lung cancer, he was a smoker. Mother Family Medical History: Hypertension Brother(s) Family Medical History: No Reported History Sister(s) Family Medical History: No Reported History Additional Family Medical History / Comment(s): . Medications and Allergies Home Medications Medication Instructions Recorded Confirmed Type ALPRAZolam [Xanax] 0.25 tab PO HS PRN 04/28/16 10/21/19 History Citalopram Hydrobromide [CeleXA] 20 mg PO DAILY 04/28/16 10/21/19 History Ergocalciferol [Vitamin D2 50,000 units PO Q14D 04/28/16 10/21/19 History (DRISDOL)] Albuterol Inhaler [Ventolin Hfa 2 puff INHALATION RT-Q6H PRN 11/17/16 10/21/19 History Inhaler] Metoprolol Succinate (ER) [Toprol 25 mg PO QAM 05/04/19 10/21/19 History XL] Montelukast [Singulair] 10 mg PO HS PRN 05/04/19 10/21/19 History Advair Inhaler (Unknown Dose) 1 puff INHALATION DIRECTED PRN 09/28/19 10/21/19 History Hydrocodone/Acetaminophen [Marshall 1 tab PO Q6HR PRN 3 Days #10 tab 10/21/19 Rx 5-325] Allergies Allergy/AdvReac Type Severity Reaction Status Date / Time No Known Allergies Allergy Verified 10/21/19 09:57 Physical Exam Vitals: Vital Signs Temp Pulse Pulse Resp BP BP Pulse Ox 10/22/19 07:00 98 F 82 12 105/62 93 L 10/22/19 01:05 98.7 F 62 16 110/68 98 10/21/19 16:45 61 119/74 10/21/19 16:30 71 99/67 10/21/19 16:15 62 111/68 10/21/19 16:00 67 111/75 10/21/19 15:45 60 116/79 10/21/19 15:30 65 111/77 10/21/19 15:15 58 L 109/70 10/21/19 15:00 98.0 F 78 18 116/72 95 10/21/19 14:36 63 16 146/92 98 10/21/19 14:22 60 16 142/86 96 10/21/19 14:07 65 16 157/92 97 10/21/19 13:51 62 16 146/83 100 10/21/19 13:36 62 16 155/88 100 10/21/19 13:21 68 16 162/96 100 10/21/19 13:06 97.1 F L 99 18 168/90 100 Intake and Output 10/21/19 10/22/19 10/22/19 22:59 06:59 14:59 Intake Total 1375 Output Total 300 Balance -300 1375 Intake: IV 1375 D5-0.45% NaCl with KCl 1375 20Meq/l 1,000 ml @ 125 mls/hr IV .Q8H [facility] Rx#: [id number] Output: Urine 300 Other: # Voids 2 Weight 119 kg Gen: This is a 44-year-old -[place]in[place] female. Patient is resting in bed appears to be comfortable and in no acute distress. HEENT: Head is atraumatic, normocephalic. Pupils equal, round. Sclerae is anicteric. NECK: Supple. No JVD. No lymphadenopathy. No thyromegaly. LUNGS: Clear to auscultation. No wheezes or rhonchi. No intercostal retractions. HEART: Regular rate and rhythm. No murmur. ABDOMEN: Soft. Bowel sounds are present. No masses. No tenderness. Laparoscopic sites without significant drainage, bleeding, erythema. EXTREMITIES: No pedal edema. No calf tenderness. Dorsalis pedis +2 bilaterally. NEUROLOGICAL: Patient is awake, alert and oriented x3. Cranial nerves 2 through 12 are grossly intact. Results Labs: Abnormal Lab Results - Last 24 Hours (Table) 10/22/19 Range/Units 07:14 POC Glucose (mg/dL) 115 H (75-99) mg/dL Assessment and Plan Plan: 1. Chronic cholecystitis status post left arthroscopic cholecystectomy. Continue current pain management, incentive spirometry, diet. 2. History of hypertrophic obstructive cardiomyopathy. Continue Toprol-XL 25 mg daily. 3. Mild asthma. Continue Advair, Ventolin inhaler and Singulair. 4. Irritable bowel syndrome, stable. 5. Obstructive sleep apnea without CPAP. Discharge plan: Home today Impression and plan of care have been directed as dictated by the signing physician. Kasie Yu nurse practitioner acting as scribe for signing physician.
== END 2019-10-22 17:03 | disposition home or self-care (01) ==
LOC: OR 09:45 → 4SSUR 14:26 → OR 10-22 02:55 → 4SSUR 10-22 02:55
PROVIDERS: ADMIT Surgery; ATTEND Surgery
DX: K81.1 Chronic cholecystitis (principal); I42.1 Obstructive hypertrophic cardiomyopathy; J45.909 Unspecified asthma, uncomplicated; G47.33 Obstructive sleep apnea (adult) (pediatric); M19.90 Unspecified osteoarthritis, unspecified site
CPT/HCPCS: 47562; 88304; G0378; J2250; J1644; J1100; J2710; J0690; J2405; J2001; J3010; J1885 ×2; J2704; J1170

== ENCOUNTER → 2019-11-28 | Outpatient (CLI) | payer BC ==
[2019-11-28 14:19] LABS: ALT 28 U/L (4-34); AST 33 U/L (14-36); African American GFR (CKD) >90 (>60 ml/min/1.73 sqM); Albumin 4.2 g/dL (3.5-5.0); Alkaline Phosphatase 54 U/L (38-126); Anion Gap 10 mmol/L; Basophils % (A) 0 %; Blood Urea Nitrogen 13 mg/dL (7-17); Calcium 9.3 mg/dL (8.4-10.2); Carbon Dioxide 20 mmol/L (22-30); Chloride 107 mmol/L (98-107); Eosinophils # (A) 0.3 k/uL (0-0.7); Eosinophils % (A) 4 %; Glucose 118 mg/dL (74-99); HCT 41.5 % (34.0-46.0); HGB 13.5 gm/dL (11.4-16.0); Lymphocytes # (A) 2.2 k/uL (1.0-4.8); Lymphocytes % (A) 36 %; MCH 30.7 pg (25.0-35.0); MCHC 32.5 g/dL (31.0-37.0); MCV 94.6 fL (80.0-100.0); Mean Platelet Volume 12.9; Monocytes # (A) 0.3 k/uL (0-1.0); Monocytes % (A) 5 %; Neutrophils # (A) 3.2 k/uL (1.3-7.7); Neutrophils % (A) 52 %; Non-African American GFR(CKD) 90 (>60 ml/min/1.73 sqM); Platelet Count 170 k/uL (150-450); Potassium 4.3 mmol/L (3.5-5.1); RBC 4.39 m/uL (3.80-5.40); RDW 12.6 % (11.5-15.5); Sodium 137 mmol/L (137-145); Total Bilirubin 0.4 mg/dL (0.2-1.3); Total Protein 7.6 g/dL (6.3-8.2); WBC 6.2 k/uL (3.8-10.6)
[2019-11-28 14:41] LABS: Large Platelets Present
== END | disposition home or self-care (01) ==
LOC: LABPAT 13:14
PROVIDERS: ATTEND Surgery
DX: Z01.818 Encounter for other preprocedural examination (principal)
CPT/HCPCS: 36415; 80053; 85025

== ENCOUNTER → 2020-08-23 | Outpatient (CLI) | payer BC ==
--- NOTE | 2020-08-24 10:40 | MM ---
Reason for exam: clinical finding. Last mammogram was performed 1 year and 3 months ago. History: Patient is nulliparous. Family history of breast cancer in sister at age 39. Benign excisional biopsy of the left breast, 2008. Took hormonal contraceptives for 7 years beginning at age 17. Indicated problem(s): lump or thickening in the left breast. Physical Findings: Nurse did not find any significant physical abnormalities on exam. MG Diagnostic Mammo w CAD CAIO Bilateral CC and MLO view(s) were taken. Prior study comparison: May 30, 2019, bilateral MG 3d diag mammo w/cad CAIO. December 28, 2017, bilateral MG diagnostic mammo w CAD CAIO. There are scattered fibroglandular densities. There is chronic nodularity in the left breast. There is no discrete abnormality at region of palpable. These results were verbally communicated with the patient and result sheet given to the patient on 08/23/20. ASSESSMENT: Incomplete: need additional imaging evaluation, BI-RAD 0 RECOMMENDATION: Ultrasound of the left breast.
--- NOTE | 2020-08-24 10:41 | USB ---
Reason for exam: additional evaluation requested from abnormal screening. History: Patient is nulliparous. Family history of breast cancer in sister at age 39. Benign excisional biopsy of the left breast, 2008. Took hormonal contraceptives for 7 years beginning at age 17. US Breast Limited LT Technologist: Petty Julian Left limited breast ultrasound including focal area of concern, retroareolar and axilla demonstrates no cystic or solid lesion seen. These results were verbally communicated with the patient and result sheet given to the patient on 08/23/20. ASSESSMENT: Negative, BI-RAD 1 RECOMMENDATION: Routine screening mammogram of both breasts in 1 year. Manage patient on a clinical basis.
== END | disposition home or self-care (01) ==
LOC: RADMAMWWP 14:24
PROVIDERS: ATTEND Internal Medicine Geriatric Medicine
DX: N63.25 Unspecified lump in the left breast, overlapping quadrants (principal); R92.8 Other abnormal and inconclusive findings on diagnostic imaging of breast
CPT/HCPCS: 77066

== ENCOUNTER → 2024-07-27 | Outpatient (CLI) | payer OTHER ==
[2024-07-27 09:04] LABS: Partial Thromboplastin Time 24.8 sec (22.0-30.0); Prothrombin Time 10.6 sec (10.0-12.5)
[2024-07-27 10:20] LABS: HCT 40.2 % (37.2-46.3); HGB 13.1 g/dL (12.0-15.0); MCH 31.6 pg (27.0-32.0); MCHC 32.6 g/dL (32.0-37.0); MCV 97.1 FL (80.0-97.0); Mean Platelet Volume 13.6 FL (9.5-12.2); NRBC Per 100 WBC 0 X 10*3/uL (0.00-0.01); Platelet Count 182 X 10*3/uL (140-440); RBC 4.14 X 10*6/uL (4.10-5.20); RDW 12.2 % (11.5-14.5); WBC 5.31 X 10*3/uL (4.50-10.00)
[2024-07-27 10:29] LABS: ALT 22 U/L (8-44); AST 27 U/L (13-35); Albumin 4.2 g/dL (3.8-4.9); Albumin/Globulin Ratio 1.56 Ratio (1.60-3.17); Alkaline Phosphatase 69 U/L (41-126); Calcium 9.3 mg/dL (8.7-10.3); Carbon Dioxide 26.4 mmol/L (21.6-31.8); Chloride 109 mmol/L (96-109); Globulin 2.7 g/dL (1.6-3.3); Glucose 84 mg/dL (70-110); Potassium 4.5 mmol/L (3.5-5.5); Sodium 145 mmol/L (135-145); Total Bilirubin 0.2 mg/dL (0.3-1.2); Total Protein 6.9 g/dL (6.2-8.2)
== END | disposition home or self-care (01) ==
LOC: LABPAT 07:26
PROVIDERS: ATTEND Orthopaedic Surgery
DX: Z01.812 Encounter for preprocedural laboratory examination (principal); M17.11 Unilateral primary osteoarthritis, right knee; Z22.322 Carrier or suspected carrier of Methicillin resistant Staphylococcus aureus
CPT/HCPCS: 80053; 85027; 85610; 85730; 87070

== ENCOUNTER 2024-08-08 10:30 | Day surgery (SDC) | payer BC, OTHER ==
[~2024-08-08 10:30] MED LIST changes: -DEXAMETHASONE SOD PHOSPHATE 10 MG/ML 1 ML VIAL IV ONE; -HEPARIN SODIUM,PORCINE 5,000 UNIT/ML 1 ML VIAL SQ ONE; -LACTATED RINGERS 1,000 ML IV SCH; +LIDOCAINE 1% (10MG/ML) FOR IV START INTRADERMA PRN; -LIDOCAINE 1% 20 ML VIAL (10MG/ML) FOR IV START INTRADERMA PRN; -SCOPOLAMINE 1.5MG/72HR PATCH TRANSDERM ONE; +TRANEXAMIC 1,000 MG/100ML-NACL 1,000 MG in SALINE 1 100ML.BAG IVPB PRN
[2024-08-08] MEDS: ACETAMINOPHEN TAB 500 MG TAB PO PRN (11:11)
[2024-08-08] MEDS: LACTATED RINGERS 1,000 ML IV SCH ×2 (11:11→20:36)
[2024-08-08] MEDS: MELOXICAM 7.5 MG TAB PO PRN (11:11)
[2024-08-08] MEDS: ONDANSETRON 4 MG/2 ML VIAL IVP PRN ×2 (11:12→16:55)
[2024-08-08] MEDS: IV FLUID CONTINUATION 1,000 ML IV ONE ×3 (11:20→16:25)
[2024-08-08 11:22] LABS: Glucose,Whole Blood 97 mg/dL (70-110)
[2024-08-08] MEDS: MIDAZOLAM 2 MG/2 ML VIAL IV ONE (11:36)
[2024-08-08] MEDS: ALBUMIN HUMAN 5% 500 ML in EMPTY BAG 1 BAG IVPB STA (12:09)
[2024-08-08] MEDS: ceFAZolin 1,000 MG in SODIUM CHLORIDE 0.9% 1,000 ML IRRIGATION ONE (12:17)
[2024-08-08] MEDS ORDERED: TEMAZEPAM 15 MG CAP PO PRN (12:21)
[2024-08-08] MEDS ORDERED: MAGNESIUM HYDROXIDE 2,400 MG/30 ML CUP PO PRN (12:21)
[2024-08-08] MEDS ORDERED: HYDROmorphone 0.5 MG/0.5 ML SYRINGE IVP PRN ×2 (12:21)
[2024-08-08] MEDS ORDERED: NA PHOS,M-B/NA PHOS,DI-BA 133 ML ENEMA RECTAL PRN (12:21)
[2024-08-08] MEDS ORDERED: bisacodyL 10 MG SUPP RECTAL PRN (12:21)
[2024-08-08] MEDS ORDERED: HYDROmorphone 1 MG/ML 1 ML SYRINGE IVP PRN (12:21)
[2024-08-08] MEDS ORDERED: NALOXONE 0.4 MG/ML 1 ML VIAL IV PRN (12:21)
--- NOTE | 2024-08-08 13:50 | P.OP ---
Date of Procedure: 08/08/24 Procedure(s) Performed: PREOPERATIVE DIAGNOSIS: Right knee severe osteoarthritis with genu valgum POSTOPERATIVE DIAGNOSIS: Right knee severe osteoarthritis with genu valgum OPERATION: Right knee cemented total replacement arthroplasty. ANESTHESIA: General, with ACB and IPAC regional blocks for postoperative pain control ESTIMATED BLOOD LOSS: [address] LIGHT MECHANIC: Giovana Saleem PA-C (assistance with: patient positioning, retraction, exposure, hemostasis, leg positioning, implantation, irrigation, closure, dressing) COMPLICATIONS: None apparent. COMPONENTS IMPLANTED: Persona system from [employer] INDICATIONS: Gabriela is a 48 year old active female with a history of knee osteoarthritis. The patient's knee is end-stage, and conservative management has failed. The operation of knee replacement has been discussed at length in the office, as well as potential risks and complications. These are inclusive of, but not limited to: bleeding, infection, scarring, discomfort, blood vessel and nerve damage, need for further surgery, failure to relieve symptoms, persistence, recurrence, or worsening of problems, loosening, dislocation, wear, blood clot, pulmonary embolism, , gait dysfunction, stiffness, and other risks as discussed in the office. She has a history of hypertrophic cardiomyopa thy and has received preoperative clearance from Dr. Sanders. The patient elects to proceed and the consent form has been signed. PROCEDURE: The patient was taken to the operating room and positioned on the operating room table in the supine position. Anesthesia was initiated. Care was taken to make sure that all pressure points were adequately padded. The operative lower extremity was prepped and draped in the usual aseptic fashion using ChloraPrep. Ioban drape was used for the case and the patient received intravenous antibiotics within one hour of the incision. A pneumotourniquet and leg macias were used for the case. The limb was exsanguinated with an Esmarch bandage and the tourniquet was inflated to 250 mmHg. Time-out was called confirming the patient's identity, side, procedure and administration of antibiotics. The incision was then created midline directly over the knee, carried down through skin and into the subcutaneous tissues and down to fascia. Full thickness subcutaneous medial flap was developed. Medial parapatellar arthrotomy was performed and the interior of the knee was inspected. There was end-stage osteoarthritis of the knee with a mild to moderate genu valgum type deformity. The fat pad was excised and limited proximal medial release on the tibia was completed using meticulous dissection and a curved osteotome. The anterior cruciate ligament was taken down. Note was made of significant attrition of the anterior and significant degenerative appearance of the posterior cruciate ligaments. The exposure was excellent. The knee was flexed 90 degrees and the patella was everted. A spot was chosen on the femur approximately 1 cm anterior to the posterior cruciate ligament insertion and an intramedullary hole was created within the femur. The intr amedullary guide was then set to 5 degrees of valgus. The distal cutting block was attached and pinned into position. An appropriate amount of distal femoral resection was set. The oscillating saw was then used to make the distal femoral cut. This cut was confirmed to be flat with the flat end of an osteotome. The retractors were placed around the tibia and the tibial surface was addressed. The angle and depth of resection was adjusted using an extramedullary cutting guide. The guide had a built-in 3 degree posterior slope cut. Once the cutting guide was adjusted appropriately and in line with the axis of the tibia and confirmed to be in good position in relation to the second metatarsal and transmalleolar axis, the tibial cut was then created with protection of the posterior neurovascular structures and the collateral ligaments. Bone quality was noted to be normal for age. The tibial cut surface was removed and sized. Femoral sizing was then accomplished using anterior referencing. Care was taken to analyze the posterior condyles for signs of deficiency or severe wear, and adjustments to the guide were made, as appropriate. 3 degree external rotation pins were placed. The cutting jig for the femur was applied to these pins. The planned cuts were further analyzed prior to performing them with the oscillating saw. No femoral notching was produced. Bone fragments were removed and the cut surfaces were finished, as necessary, with a reciprocating saw. Spacer block technique was then used to confirm that the flexion and extension gaps were equal. Soft tissue releases and adjustment of the tibial and/or femoral cuts were made, as necessary, until the gaps were equal. This included release of the posterior cruciate ligament, which was tight in this patient and, if left unreleased, would have resulted in poor kinematics and possibly early loosening. The femur was then further finished for a posterior cruciate ligament substituting component. Patellar resurfacing was performed using a reamer. The size of the required patellar component was estimated and the patellar surface was then reamed down to a residual thickness which would recreate the [place] thickness with the component. The exact placement of the patellar component was adjusted for position based on preoperative x-rays and intraoperative findings. The trial components were inserted. The tibial tray was allowed to self center and the patella was noted to track very well. The position of the tibial component was marked and the tibia was then finished for a stemmed tibial component. Cement was mixed on the back table and applied to the final components. Trial components were removed and the cut surfaces of the bone were pulse lavaged thoroughly and dried. Cement was then applied to the tibial surface and pressurized into the surface using finger pressurization technique. The tibial component was then applied and excess cement was removed after it was impacted securely and noted to be flush with the cut surface. In similar fashion, the cement was applied to the cut femoral surface, pressurized in using finger pressurization and the component was impacted into place. Excess cement was removed. The polyethylene spacer was then implanted and locked into position. The patellar component was then applied in similar technique and a patellar clamp was used to hold the patella in place as the cement hardened. Once the cement had fully hardened, the knee was reinspected. Any other cement extrusion was removed and final kinematic testing showed range of motion from 0 to 130 degrees with excellent stability, both medially and laterally and appropriate alignment of the leg. Patellar tracking was excellent. The knee was then thoroughly pulse lavaged with normal saline. The tourniquet was deflated and hemostasis was obtained with electrocautery and IV tranexamic acid, 1 g given at the start of the operation and 1 g at the start of closure. Closure was with #2 Ethibond in the fascia/capsule and supplemented with #2 Quill, 2-0 Vicryl suture was used for the subcutaneous tissues and 3-0 Quill for the skin. Dermabond/Steri-Strips were then applied. A lightly compressive dressing was applied using Webril and an Caden wrap. The patient was then transferred to stretcher and taken to the recovery room in stable condition. Sponge and needle counts were correct.
--- NOTE | 2024-08-08 14:16 | P.ANPRN ---
Procedure Note - Anesthesia - Nerve Block Performed Right Adductor Canal Infusion Time Out Performed: Yes Date of Procedure: 08/08/24 Procedure Start Time: 11:35 Procedure Stop Time: :44 Location of Patient: PreOp Indication: Acute Post-Operative Pain, Requested by Surgeon Preparation: Sterile Prep, Sterile Dressing Position: Supine Catheter: Indwelling Needle Types: Pajunk Needle Gauge: 21 Ultrasound used to visualize needle placement: Yes Ultrasound used to observe medication spread: Yes Blood Aspirated: No Pain Paresthesia on Injection Noted: No Resistance on Injection: Normal Image Stored and Saved: Yes Events: Uneventful and Well Tolerated (Ropivacaine 0.5% 20 cc plus dexamethasone 4 mg)
--- NOTE | 2024-08-08 14:17 | P.ANPRN ---
Procedure Note - Anesthesia - Nerve Block Performed Right [place] Single Time Out Performed: Yes Date of Procedure: 08/08/24 Procedure Start Time: 11:45 Procedure Stop Time: 11:46 Location of Patient: PreOp Indication: Acute Post-Operative Pain, Requested by Surgeon Sedation Type: Sedate with meaningful contact maintained Preparation: Sterile Prep Position: Supine Needle Types: Pajunk Needle Gauge: 21 Ultrasound used to visualize needle placement: Yes Ultrasound used to observe medication spread: Yes Blood Aspirated: No Pain Paresthesia on Injection Noted: No Resistance on Injection: Normal Image Stored and Saved: Yes Events: Uneventful and Well Tolerated (Ropivacaine 0.5% 20 cc plus dexamethasone 4 mg)
[2024-08-08] MEDS: ROPIVACAINE 1,100 MG, SODIUM CHLORIDE 0.9% 500 ML 330 ML, EMPTY PAIN BALL 1 EACH MISCELLANE PRN (14:42)
[2024-08-08] MEDS: HYDROmorphone 0.5 MG/0.5 ML SYRINGE IVP PRN (14:48)
--- NOTE | 2024-08-08 15:15 | XR ---
EXAMINATION TYPE: XR knee limited RT DATE OF EXAM: 08/08/2024 COMPARISON: NONE CLINICAL INDICATION: Female, 48 years old with history of Evaluation for Postop abnormality and align ment; TECHNIQUE: Two views submitted FINDINGS: There is a prosthetic knee in near anatomic alignment. There is soft tissue edema and soft tissue e mphysema\air compatible with recent surgery. IMPRESSION: 1. Postoperative change. [facility], , 08/08/2024 3:13 PM
[2024-08-08] MEDS ORDERED: ALBUTEROL NEBULIZED 2.5 MG/3 ML INHALATION PRN (17:23)
[2024-08-08] MEDS ORDERED: SYMBICORT 160-4.5 MCG INHALER INHALATION PRN (17:23)
[2024-08-08] MEDS: ALBUMIN HUMAN 5% 500 ML IVPB ONE (17:27)
[2024-08-08] MEDS: ASPIRIN 81 MG PO SCH (20:36)
[2024-08-08] MEDS: SENNOSIDES-DOCUSATE SODIUM 1 EACH TAB PO SCH (20:36)
[2024-08-09] MEDS: HYDROcodone/APAP 7.5-325MG 1 EACH TAB PO PRN (02:01)
--- NOTE | 2024-08-09 07:23 | P.PN ---
Progress Note - Text Progress Note Date: 08/09/24 (491) Anesthesiology Postop day 1 status post total knee arthroplasty with adductor canal catheter. Patient doing well. VAS 4 out of 10. Gross strength intact in lower extremity. Afebrile. Denies alterations in sensorium. Catheter site intact. Heart regular rate Lungs nonlabored Abdomen nondistended Assessment: Postop day 1 status post total knee arthroplasty with adductor canal catheter Plan: 1.All questions answered. Maintain catheter 2 more days with patient removal at home. Instructions to be given at discharge. 2.This note was dictated using [email or web address] software. Please be advised there is a potential for misspellings or errors in coffee host.
[2024-08-09] MEDS: CITALOPRAM HYDROBROMIDE 20 MG TAB PO SCH (07:48)
[2024-08-09 08:27] LABS: Basophils # (A) 0.01 X 10*3/uL (0.00-0.10); Basophils % (A) 0.1 %; Eosinophils # (A) 0 X 10*3/uL (0.04-0.35); Eosinophils % (A) 0 %; HCT 29.7 % (37.2-46.3); Lymphocytes # (A) 1.07 X 10*3/uL (0.90-5.00); Lymphocytes % (A) 10.7 %; MCH 31.7 pg (27.0-32.0); MCHC 33.7 g/dL (32.0-37.0); MCV 94.3 FL (80.0-97.0); Mean Platelet Volume 14.1 FL (9.5-12.2); Monocytes # (A) 0.59 X 10*3/uL (0.20-1.00); Monocytes % (A) 5.9 %; NRBC Per 100 WBC 0 X 10*3/uL (0.00-0.01); Neutrophils # (A) 8.32 X 10*3/uL (1.80-7.70); Platelet Count 136 X 10*3/uL (140-440); RBC 3.15 X 10*6/uL (4.10-5.20); RDW 12.3 % (11.5-14.5); WBC 10.02 X 10*3/uL (4.50-10.00)
[2024-08-09] MEDS: METOPROLOL SUCCINATE (ER) 25 MG TAB.ER.24H PO SCH (09:03)
--- NOTE | 2024-08-09 09:09 | P.DS ---
Providers Expected date of discharge: 08/09/24 Attending physician: Odilon Chase Consults: 08/08/24 12:21 Consult Physician Routine Consulting Provider: Kevin Sandoval Consult Reason/Comments: medical management Do you want consulting provider notified?: Yes 08/08/24 12:24 Consult Physician Routine Consulting Provider: Taylor Trinh Consult Reason/Comments: post op cardiac eval Do you want consulting provider notified?: Yes Primary care physician: Neo Guido - Discharge Diagnosis(es) (1) Osteoarthritis of right knee Current Visit: Yes Status: Acute (2) Status post total right knee replacement Current Visit: Yes Status: Acute Hospital Course: This is a pleasant 48-year-old female last seen in our office with complaints of right knee pain. Patient has known history of degenerative arthritis of the right knee and presented to discuss options. After discussion and consideration, patient elected to proceed with a total knee arthroplasty of the right knee. The patient was seen preoperatively and medically cleared for surgery by her PCP and cardiology. The patient was admitted to [facility] and underwent right total knee arthroplasty on 08/08/[address] Chase. The procedure was performed without complications or sequelae. The patient has done well postoperatively. The patient was seen and evaluated at bedside today and denies any new complaints. Pain is reasonably controlled. Dressing is clean dry and intact. Incision looks fine with no erythema or active drainage. Calf is soft and nontender. The patient has full foot and ankle motion without difficulty. Patient's right lower extremity is neurovascular intact. Patient is orthopedically stable for discharge to home today. Pertinent Studies: Laboratory Tests 08/09/24 03:37 WBC 10.02 H RBC 3.15 L Hgb 10.0 L Hct 29.7 L Patient Condition at Discharge: Stable Plan - Discharge Summary Discharge Rx Participant: Yes New Discharge Prescriptions: New Aspirin 81 mg PO BID #60 tab HYDROcodone/APAP 7.5-325MG [[place] 7.5-325] 1 tab PO Q4-6H PRN #30 tab PRN Reason: Pain Sennosides-Docusate Sodium [Senokot-S] 2 tab PO DAILY #30 tablet No Action Citalopram Hydrobromide [CeleXA] 20 mg PO DAILY Albuterol Inhaler [Ventolin Hfa Inhaler] 2 puff INHALATION RT-Q6H PRN PRN Reason: Shortness Of Breath Metoprolol Succinate (ER) [Toprol XL] 25 mg PO QAM Advair Inhaler (Unknown Dose) 1 puff INHALATION DIRECTED PRN PRN Reason: Shortness Of Breath Semaglutide [Wegovy] 0.25 mg SQ Q7D Vit No.179/Iron/Folic [ Tablet] 1 tab PO DAILY Discharge Medication List Citalopram Hydrobromide [CeleXA] 20 mg PO DAILY 04/28/16 [History] Albuterol Inhaler [Ventolin Hfa Inhaler] 2 puff INHALATION RT-Q6H PRN 11/17/16 [History] Metoprolol Succinate (ER) [Toprol XL] 25 mg PO QAM 05/04/19 [History] Advair Inhaler (Unknown Dose) 1 puff INHALATION DIRECTED PRN 09/28/19 [History] Vit No.179/Iron/Folic [ Tablet] 1 tab PO DAILY 08/03/24 [History] Semaglutide [Wegovy] 0.25 mg SQ Q7D 08/03/24 [History] Aspirin 81 mg PO BID #60 tab 08/09/24 [Rx] HYDROcodone/APAP 7.5-325MG [[place] 7.5-325] 1 tab PO Q4-6H PRN #30 tab 08/09/24 [Rx] Sennosides-Docusate Sodium [Senokot-S] 2 tab PO DAILY #30 tablet 08/09/24 [Rx] Follow up Appointment(s)/Referral(s): Giovana Saleem, PAC [PH[employer]IC[employer]] - 2 Weeks Activity/Diet/Wound Care/Special Instructions: May bear weight as tolerated with walker. May remove Caden wrap and thigh-high stocking 48 hours postop and may shower. Leave Optifoam dressing intact and may remove at 7 days postop. Wear thigh-high compression stockings during the day for 2 weeks postoperatively. Discharge Disposition: HOME WITH HOME HEALTH SERVICES
--- NOTE | 2024-08-09 10:51 | P.CRDCN ---
History of Present Illness Consult date: 08/09/24 Reason for Consult (text): Postop cardiac evaluation History of present illness: This is a 48-year-old female patient of Dr. Sanders with past medical history of hypertrophic cardiomyopathy, valvular heart disease with aortic and mitral regurgitation, hypertension, overweight. We have been asked to evaluate the patient for postop cardiac evaluation. Patient was brought into the hospital under the care of orthopedics for a right knee arthroplasty. Patient is scheduled for discharge home today. Patient is utilizing her incentive spirometry and states she is feeling great. She denies any chest pain or pressure no palpitations, no shortness of breath, no dizziness, no lower extremity edema, no nausea or vomiting. She denies any blood in her urine or stool. No history of stroke or seizure. Blood pressure 99/63, heart rate 68, pulse ox 96% on room air. -EKG: Sinus bradycardia, LVH -Laboratory studies: WBC 10, hemoglobin 10, platelet count 136. -Home cardiac medications: Toprol XL 25 mg daily, patient is also on Wegovy. -Echocardiogram performed in the office on 06/16/2024 revealed EF of 65%, mild AR, moderate to severe MR, LVOT gradient up to 112 with Valsalva. -Cardiac catheterization performed 01/18/2014: Minimal CAD, normal right heart pressures. Hyperdynamic LV. Review Of Systems: At the time of my exam: CONSTITUTIONAL: Denies fever or chills. HEENT: Denies blurred vision, vision changes, or eye pain. Denies hemoptysis CARDIOVASCULAR: Denies chest pain. Denies orthopnea. Denies PND. Denies palpitations RESPIRATORY: Denies shortness of breath. GASTROINTESTINAL: Denies abdominal pain. Denies nausea or vomiting. HEMATOLOGIC: Denies bleeding disorders. GENITOURINARY: Denies any blood in urine. SKIN: Denies puritis. Denies rash. Physical examination: Gen: This is a 48-year-old black female in no acute distress VS: reviewed HEENT: Head is atraumatic, normocephalic. Pupils equal, round. Sclerae is anicteric. NECK: Supple. No JVD. LUNGS: Clear to auscultation. No wheezes or rhonchi. No intercostal retract ions. HEART: Regular rate and rhythm. Systolic murmur worse with Valsalva maneuver. ABDOMEN: Soft No tenderness. EXTREMITIES: No pedal edema. No calf tenderness. NEUROLOGICAL: Patient is awake, alert and oriented x3. Assessment: Osteoarthritis status post right knee arthroplasty Hypertrophic cardiomyopathy, stable Valvular heart disease with aortic and mitral regurgitation Hypertension Overweight with BMI of 31 Plan: Continue patient's home cardiac medications From a cardiac perspective, patient is stable and she is cleared for discharge. Patient may follow-up with Dr. Sanders as scheduled. Thank you kindly for this consultation. Nurse practitioner note has been reviewed, I agree with documented findings and plan of care. Patient was seen and examined. Past Medical History Past Medical History: Asthma, Osteoarthritis (OA), Pneumonia, Sleep A pnea/CPAP/BIPAP Additional Past Medical History / Comment(s): 2013 Hx fall bruised heart , hypertrophic obstructive cardiomyopathy, congenital heart murmur, moderate mitral regurgitation, benign pituitary cyst, past hx hypoglycemia, RAFA -No device, past anemia, htn with steroid use, "lazy" L eye., pneumonia (2018), Hx IBS - no problems since cholecystectomy, states arthritis knees. History of Any Multi-Drug Resistant Organisms: None Reported Past Surgical History: Adenoidectomy, Breast Surgery, Cholecystectomy, Heart Ca theterization, Hysterectomy, Orthopedic Surgery, Tonsillectomy Additional Past Surgical History / Comment(s): cardiac cath and SANCHEZ, Lt. breast benign cystectomy, bilateral shoulder reconstruction, Lt. knee arthroscopy. Past Anesthesia/Blood Transfusion Reactions: Postoperative Nausea & Vomiting (PONV) Past Psychological History: Anxiety, Depression Additional Psychological History / Comment(s): Pt resides with her spouse. She is independent. Smoking Status: Never smoker Past Alcohol Use History: None Reported Past Drug Use History: None Reported - Past Family History Father Family Medical History: Cancer Additional Family Medical History / Comment(s): Father is from lung & liver cancer, he was a smoker. Mother Family Medical History: Hypertension Brother(s) Family Medical History: No Reported History Sister(s) Family Medical History: No Reported History Additional Family Medical History / Comment(s): breast cancer tx. which caused heart failure. from Covid age 42 Medications and Allergies Home Medications Medication Instructions Recorded Confirmed Type Citalopram Hydrobromide [CeleXA] 20 mg PO DAILY 04/28/16 08/03/24 History Albuterol Inhaler [Ventolin Hfa 2 puff INHALATION RT-Q6H PRN 11/17/16 08/03/24 History Inhaler] Metoprolol Succinate (ER) [Toprol 25 mg PO QAM 05/04/19 08/03/24 History XL] Advair Inhaler (Unknown Dose) 1 puff INHALATION DIRECTED PRN 09/28/19 08/03/24 History Vit No.179/Iron/Folic 1 tab PO DAILY 08/03/24 08/03/24 History [ Tablet] Semaglutide [Wegovy] 0.25 mg SQ Q7D 08/03/24 08/03/24 History Aspirin 81 mg PO BID #60 tab 08/09/24 Rx HYDROcodone/APAP 7.5-325MG [[place] 1 tab PO Q4-6H PRN #30 tab 08/09/24 Rx 7.5-325] Sennosides-Docusate Sodium 2 tab PO DAILY #30 tablet 08/09/24 Rx [Senokot-S] Allergies Allergy/AdvReac Type Severity Reaction Status Date / Time No Known Allergies Allergy Verified 08/08/24 10:54 Physical Exam Vitals: Vital Signs Temp Pulse Resp BP BP Pulse Ox 08/09/24 07:13 98.8 F 68 17 99/63 96 08/09/24 01:27 98.6 F 71 13 91/55 97 08/08/24 19:32 50 L 106/67 08/08/24 19:20 98 F 48 L 14 91/58 100 08/08/24 16:46 98.1 F 52 L 17 112/69 100 08/08/24 16:15 44 L 16 111/65 99 08/08/24 16:01 42 L 16 114/69 122/53 100 08/08/24 15:46 45 L 18 113/67 117/51 100 08/08/24 15:31 44 L 18 110/63 119/51 100 08/08/24 15:16 44 L 18 110/63 120/50 100 08/08/24 15:01 49 L 16 113/64 128/54 100 08/08/24 14:46 52 L 14 134/74 145/60 100 08/08/24 14:31 59 L 16 144/79 157/68 100 08/08/24 14:16 98.1 F 70 16 142/81 154/67 100 08/08/24 11:48 55 L 16 96/54 100 08/08/24 10:57 97.3 F L 51 L 16 114/53 96 Intake and Output 08/08/24 08/09/24 08/09/24 22:59 06:59 14:59 Intake Total 1150 1620 Balance 1150 1620 Intake: IV 500 Oral 650 1620 Other: # Voids 1 2 Weight 86.3 kg Results 08/09/24 03:37 CBC 08/09/24 Range/Units 03:37 WBC 10.02 H (4.50-10.00) X 10*3/uL RBC 3.15 L (4.10-5.20) X 10*6/uL Hgb 10.0 L (12.0-15.0) g/dL Hct 29.7 L (37.2-46.3) % Plt Count 136 L (140-440) X 10*3/uL Current Medications Generic Name Dose Route Start Last Admin Trade Name Freq PRN Reason Stop Dose Admin Hydrocodone Bitart/Acetaminophen 1 each 08/08/24 12:21 08/09/24 07:48 Hydrocodone/Apap 7.5-325mg 1 Each Tab PO 09/07/24 12:20 1 each Q6H PRN Administration Pain Albuterol Sulfate 2.5 mg 08/08/24 17:23 Albuterol Nebulized 2.5 Mg/3 Ml INHALATION RT-TID PRN Shortness Of Breath Or Wheezing Aspirin 81 mg 08/08/24 21:00 08/09/24 07:48 Aspirin 81 Mg PO 09/07/24 20:59 81 mg BID CHEYANNE Administration Bisacodyl 10 mg 08/08/24 12:21 Bisacodyl 10 Mg Supp RECTAL 09/07/24 12:20 DAILY PRN Constipation Budesonide/Formoterol Fumarate 1 puff 08/08/24 17:23 Symbicort 160-4.5 Mcg Inhaler INHALATION RT-BID PRN Shortness Of Breath Or Wheezing Citalopram Hydrobromide 20 mg 08/09/24 09:00 08/09/24 07:48 Citalopram Hydrobromide 20 Mg Tab PO 20 mg DAILY CHEYANNE Administration Ropivacaine 1,100 mg/ Sodium 0 mg 08/08/24 14:36 08/08/24 14:42 Chloride 330 ml/ Bandage/ MISCELLANE 09/07/24 14:35 330 ml Support Products 1 each Q2H PRN Administration Breakthrough Pain Hydromorphone HCl 0.5 mg 08/08/24 12:21 Hydromorphone 0.5 Mg/0.5 Ml Syringe IVP 09/07/24 12:20 Q3HR PRN Pain Scale 4 to 6 Hydromorphone HCl 1 mg 08/08/24 12:21 Hydromorphone 1 Mg/Ml 1 Ml Syringe IVP 09/07/24 12:20 Q3HR PRN Pain Scale 7 to 10 Hydromorphone HCl 0.25 mg 08/08/24 12:21 Hydromorphone 0.5 Mg/0.5 Ml Syringe IVP 09/07/24 12:20 Q3HR PRN Pain Scale 1 to 3 Lactated Ringer's 1,000 mls @ 20 mls/hr 08/08/24 06:03 08/08/24 11:11 Lactated Ringers IV 09/07/24 06:02 20 mls/hr .Q24H CHEYANNE Administration Lactated Ringer's 1,000 mls @ 100 mls/hr 08/08/24 12:30 08/09/24 07:49 Lactated Ringers IV 09/07/24 12:29 100 mls/hr .Q10H CHEYANNE Administration Lidocaine HCl 0.1 ml 08/08/24 06:03 Lidocaine 1% (10mg/Ml) For Iv Start INTRADERMA 09/07/24 06:02 PER PROTOCOL PRN IV Start Magnesium Hydroxide 2,400 mg 08/08/24 12:21 Magnesium Hydroxide 2,400 Mg/30 Ml Cup PO 09/07/24 12:20 DAILY PRN Constipation Metoprolol Succinate 25 mg 08/09/24 09:00 Metoprolol Succinate (Er) 25 Mg Tab.Er.24h PO DAILY CHEYANNE Naloxone HCl 0.2 mg 08/08/24 12:21 Naloxone 0.4 Mg/Ml 1 Ml Vial IV 09/07/24 12:20 Q2M PRN Opioid Reversal Ondansetron HCl 4 mg 08/08/24 12:21 08/08/24 16:55 Ondansetron 4 Mg/2 Ml Vial IVP 09/07/24 12:20 4 mg Q8HR PRN Administration Nausea And Vomiting Senna/Docusate Sodium 2 each 08/08/24 21:00 08/08/24 20:36 Sennosides-Docusate Sodium 1 Each Tab PO 09/07/24 20:59 2 each HS CHEYNANE Administration Sodium Biphosphate/Sodium Phosphate 133 ml 08/08/24 12:21 Na Phos,M-B/Na Phos,Di-Ba 133 Ml Enema RECTAL 09/07/24 12:20 DAILY PRN Constipation Temazepam 15 mg 08/08/24 12:21 Temazepam 15 Mg Cap PO 09/07/24 12:20 HS PRN Insomnia Intake and Output 08/08/24 08/09/24 08/09/24 22:59 06:59 14:59 Intake Total 1150 1620 Balance 1150 1620 Intake: IV 500 Oral 650 1620 Other: # Voids 1 2 Weight 86.3 kg 08/09/24 03:37
[2024-08-09 14:06] VITALS: BP 95/59; PULSE 87; RESP 19; TEMP 97.9
--- NOTE | 2024-08-09 15:02 | P.CONS ---
History of Present Illness - Reason for Consult Consult date: 08/09/24 Medical management, status post right knee arthroplasty - History of Present Illness This is a 48-year-old female who was recently admitted under orthopedic services status post right total knee arthroplasty. Patient follows with Dr. Guido in the outpatient setting with a past medical history of asthma, osteoarthritis, sleep apnea, hypertrophic obstructive cardiomyopathy with a congenital heart murmur, anxiety/depression. Patient did undergo presurgical clearance with her primary care provider as well as cardiology. This morning patient is doing well able to work with physical therapy reports to some minor knee discomfort although feels ready to go home. Patient to continue on incentive spirometer at least 10 times every hour while awake as well as laxatives and/or stool softeners while on narcotics. Patient medically stable and cleared for discharge once cleared by orthopedics. Encouraged elevating lower extremities while at rest and monitoring for any worsening swelling of the right lower extremity. REVIEW OF SYSTEMS: CONSTITUTIONAL: No fever, no malaise, no fatigue. HEENT: No recent visual problems or hearing problems. Denied any sore throat. CARDIOVASCULAR: No chest pain, orthopnea, PND, no palpitations, no syncope. PULMONARY: No shortness of breath, no cough, no hemoptysis. GASTROINTESTINAL: No diarrhea, no nausea, no vomiting, no abdominal pain. NEUROLOGICAL: No headaches, no weakness, no numbness. HEMATOLOGICAL: Denies any bleeding or petechiae. GENITOURINARY: Denies any burning micturition, frequency, or urgency. MUSCULOSKELETAL/RHEUMATOLOGICAL: Reports of right knee joint pain, minimal swelling, or any muscle pain. ENDOCRINE: Denies any polyuria or polydipsia. The rest of the 14-point review of systems is negative. PHYSICAL EXAMINATION: GENERAL: The patient is alert and oriented x3, not in any acute distress. Well developed, well nourished. Obese HEENT: Pupils are round and equally reacting to light. EOMI. No scleral icterus. No conjunctival pallor. Normocephalic, atraumatic. No pharyngeal erythema. No thyromegaly. CARDIOVASCULAR: S1 and S2 present. No murmurs, rubs, or gallops. PULMONARY: Chest is clear to auscultation, no wheezing or crackles. ABDOMEN: Soft, nontender, nondistended, normoactive bowel sounds. No palpable organomegaly. MUSCULOSKELETAL: No joint swelling or deformity. EXTREMITIES: No cyanosis, clubbing, or pedal edema. Right knee surgical dressing is dry and intact with no significant swelling noted NEUROLOGICAL: Gross neurological examination did not reveal any focal deficits. SKIN: No rashes. Assessment: Status post right total knee arthroplasty History of asthma, not in exacerbation History of osteoarthritis Sleep apnea history although does not wear device History of anxiety/depression Obesity with a BMI 31.7 GI prophylaxis DVT prophylaxis Full code Plan: Patient was admitted under orthopedic services status post op day 1 of right total knee arthroplasty. Patient did undergo presurgical clearance with her primary care provider as well as cardiology outpatient. Patient is medically stable and was able to work with physical therapy doing well and patient reports has support at the home and will be going home later today. Total medications reviewed and resumed as appropriate. Patient was instructed to continue with metoprolol per cardiology and outpatient follow-up as needed Patient instructed to continue using incentive spirometer at least 10 times every hour while awake including taking home and continuing to use Patient is medically stable once cleared by orthopedics for discharge Thank you kindly for this consultation. We will continue to follow with orthopedics during hospitalization. The impression and plan of care has been dictated by Petty Ricardo, Nurse Practitioner as directed. Dr. Peggy MD I have performed a history and examination and MDM of this patient, discussed the same with the dictator, and agree with the dictator's assessment and plan as written ,documented as a scribe. Based on total visit time, I have performed more than 50% of the visit. Past Medical History Past Medical History: Asthma, Osteoarthritis (OA), Pneumonia, Sleep Apnea/CPAP/BIPAP Additional Past Medical History / Comment(s): 2013 Hx fall bruised heart , hypertrophic obstructive cardiomyopathy, congenital heart murmur, moderate mitral regurgitation, benign pituitary cyst, past hx hypoglycemia, RAFA -No device, past anemia, htn with steroid use, "lazy" L eye., pneumonia (2018), Hx IBS - no problems since cholecystectomy, states arthritis knees. History of Any Multi-Drug Resistant Organisms: None Reported Past Surgical History: Adenoidectomy, Breast Surgery, Cholecystectomy, Heart Catheterization, Hysterectomy, Orthopedic Surgery, Tonsillectomy Additional Past Surgical History / Comment(s): cardiac cath and SANCHEZ, Lt. breast benign cystectomy, bilateral shoulder reconstruction, Lt. knee arthroscopy. Past Anesthesia/Blood Transfusion Reactions: Postoperative Nausea & Vomiting (PONV) Past Psychological History: Anxiety, Depression Additional Psychological History / Comment(s): Pt resides with her spouse. She is independent. Smoking Status: Never smoker Past Alcohol Use History: None Reported Past Drug Use History: None Reported - Past Family History Father Family Medical History: Cancer Additional Family Medical History / Comment(s): Father is from lung & liver cancer, he was a smoker. Mother Family Medical History: Hypertension Brother(s) Family Medical History: No Reported History Sister(s) Family Medical History: No Reported History Additional Family Medical History / Comment(s): breast cancer tx. which caused heart failure. from Covid age 42 Medications and Allergies Home Medications Medication Instructions Recorded Confirmed Type Citalopram Hydrobromide [CeleXA] 20 mg PO DAILY 04/28/16 08/03/24 History Albuterol Inhaler [Ventolin Hfa 2 puff INHALATION RT-Q6H PRN 11/17/16 08/03/24 History Inhaler] Metoprolol Succinate (ER) [Toprol 25 mg PO QAM 05/04/19 08/03/24 History XL] Advair Inhaler (Unknown Dose) 1 puff INHALATION DIRECTED PRN 09/28/19 08/03/24 History Vit No.179/Iron/Folic 1 tab PO DAILY 08/03/24 08/03/24 History [ Tablet] Semaglutide [Wegovy] 0.25 mg SQ Q7D 08/03/24 08/03/24 History Aspirin 81 mg PO BID #60 tab 08/09/24 Rx HYDROcodone/APAP 7.5-325MG [[place] 1 tab PO Q4-6H PRN #30 tab 08/09/24 Rx 7.5-325] Sennosides-Docusate Sodium 2 tab PO DAILY #30 tablet 08/09/24 Rx [Senokot-S] Allergies Allergy/AdvReac Type Severity Reaction Status Date / Time No Known Allergies Allergy Verified 08/08/24 10:54 Physical Exam Vitals: Vital Signs Temp Pulse Resp BP BP Pulse Ox 08/09/24 07:13 98.8 F 68 17 99/63 96 08/09/24 01:27 98.6 F 71 13 91/55 97 08/08/24 19:32 50 L 106/67 08/08/24 19:20 98 F 48 L 14 91/58 100 08/08/24 16:46 98.1 F 52 L 17 112/69 100 08/08/24 16:15 44 L 16 111/65 99 08/08/24 16:01 42 L 16 114/69 122/53 100 08/08/24 15:46 45 L 18 113/67 117/51 100 08/08/24 15:31 44 L 18 110/63 119/51 100 08/08/24 15:16 44 L 18 110/63 120/50 100 08/08/24 15:01 49 L 16 113/64 128/54 100 08/08/24 14:46 52 L 14 134/74 145/60 100 08/08/24 14:31 59 L 16 144/79 157/68 100 08/08/24 14:16 98.1 F 70 16 142/81 154/67 100 08/08/24 11:48 55 L 16 96/54 100 08/08/24 10:57 97.3 F L 51 L 16 114/53 96 Intake and Output 08/08/24 08/09/24 08/09/24 22:59 06:59 14:59 Intake Total 1150 1620 Balance 1150 1620 Intake: IV 500 Oral 650 1620 Other: # Voids 1 2 Weight 86.3 kg Results CBC & Chem 7: 08/09/24 03:37 Labs: Abnormal Lab Results - Last 24 Hours (Table) 08/09/24 Range/Units 03:37 WBC 10.02 H (4.50-10.00) X 10*3/uL RBC 3.15 L (4.10-5.20) X 10*6/uL Hgb 10.0 L (12.0-15.0) g/dL Hct 29.7 L (37.2-46.3) % Plt Count 136 L (140-440) X 10*3/uL MPV 14.1 H (9.5-12.2) FL Neutrophils # 8.32 H (1.80-7.70) X 10*3/uL Eosinophils # 0 L (0.04-0.35) X 10*3/uL
== END 2024-08-09 14:26 | disposition home health service (06) ==
LOC: OR 10:30 → 4SSUR 14:16 → OR 08-09 14:26
PROVIDERS: ATTEND Orthopaedic Surgery
DX: M17.11 Unilateral primary osteoarthritis, right knee (principal); M21.061 Valgus deformity, not elsewhere classified, right knee; E66.811 Obesity, class 1; F32.A Depression, unspecified; G47.33 Obstructive sleep apnea (adult) (pediatric); G89.18 Other acute postprocedural pain; I08.0 Rheumatic disorders of both mitral and aortic valves; I10 Essential (primary) hypertension; I42.1 Obstructive hypertrophic cardiomyopathy; J45.909 Unspecified asthma, uncomplicated; K58.9 Irritable bowel syndrome, unspecified; Z68.31 Body mass index [BMI] 31.0-31.9, adult; Z79.51 Long term (current) use of inhaled steroids; Z79.82 Long term (current) use of aspirin; Z90.49 Acquired absence of other specified parts of digestive tract; Z90.710 Acquired absence of both cervix and uterus
CPT/HCPCS: 27447; 93005; 97161; 64999; 64448; 85025; 73560; C1713; C1776; C1751; P9045; J2250; J0690 ×3; J2405; J2795; J1171